=== PATIENT | female | born 1955 | race Caucasian/White ===

== ENCOUNTER → 2020-09-24 | Outpatient (CLI) | payer OTHER ==
[2020-09-24 16:31] LABS: African American GFR (CKD) 78.9 (60.0-200.0); Anion Gap 6.5 mmol/L (4.00-12.00); BUN/Creat Ratio 18.89 Ratio (12.00-20.00); Calcium 9.4 mg/dL (8.7-10.3); Carbon Dioxide 26.5 mmol/L (21.6-31.8); Chol/HDL Ratio 2.2; LDL Cholesterol,Calculated 68.6 mg/dL (0.0-131.0); Potassium 4.9 mmol/L (3.5-5.5); VLDL Calculation 10.4 mg/dL (5.00-40.00)
== END | disposition home or self-care (01) ==
LOC: LABWHC1 08:36
PROVIDERS: ATTEND Physician Assistant
DX: Z00.00 Encounter for general adult medical examination without abnormal findings (principal); I42.9 Cardiomyopathy, unspecified
CPT/HCPCS: 36415; 80048; 80061; 84443

== ENCOUNTER 2023-09-05 11:51 | Inpatient (IN) | payer BC, MEDICARE, OTHER ==
--- NOTE | 2023-09-05 12:14 | ED ---
SOB HPI - General Chief Complaint: Shortness of Breath Stated Complaint: abn EKG Time Seen by Provider: 09/05/23 12:00 Source: patient, RN notes reviewed Mode of arrival: ambulatory Limitations: no limitations - History of Present Illness Initial Comments: This is a 67-year-old female who presents to the emergency department for shortness of breath. Reports increasing shortness of breath over the last 2 weeks. She went to urgent care today and had a chest x-ray done, demonstrating fluid on the lungs. Denies any chest pain. This morning, she noticed swelling in the bilateral lower extremities and had difficulty getting her shoes on. She did not notice the swelling prior to today. She does have a history of a leaky heart valve and used to follow with Dr. Ponce, cardiology, but has not seen him in about 3 years, since [facility]. She has also not been on any of her medications for about 3 years. She cannot recall what these medications are. Denies any fevers, chills, sore throat, chest pain, palpitations, abdominal pain, nausea, vomiting, diarrhea, back pain, or headaches. MD Complaint: shortness of breath Onset/Timin -: week(s) - Related Data Home Medications Medication Instructions Recorded Confirmed No Known Home Medications 09/05/23 09/05/23 Allergies Allergy/AdvReac Type Severity Reaction Status Date / Time No Known Allergies Allergy Verified 09/05/23 13:41 Review of Systems ROS Statement: Those systems with pertinent positive or pertinent negative responses have been documented in the HPI. ROS Other: All systems not noted in ROS Statement are negative. Past Medical History Past Medical History: Hyperlipidemia, Hypertension Additional Past Medical History / Comment(s): leaky heart valve History of Any Multi-Drug Resistant Organisms: None Reported Past Surgical History: No Surgical Hx Reported Past Psychological History: No Psychological Hx Reported Smoking Status: Never smoker Past Alcohol Use History: None Reported Past Drug Use History: None Reported General Exam Limitations: no limitations General appearance: alert, in no apparent distress Head exam: Present: atraumatic, normocephalic, normal inspection Respiratory exam: Present: normal lung sounds bilaterally. Absent: respiratory distress, wheezes, rales, rhonchi, stridor Cardiovascular Exam: Present: normal rhythm, tachycardia Extremities exam: Present: other (Swelling to the bilateral lower extremities without any tenderness. No erythema.) Neurological exam: Present: alert, oriented X3, CN II-XII intact Psychiatric exam: Present: normal affect, normal mood Skin exam: Present: warm, dry, intact, normal color. Absent: rash Course Vital Signs 09/05/23 09/05/23 09/05/23 11:53 12:45 12:48 Temperature 98 F Pulse Rate 110 H 96 Respiratory 24 18 18 Rate Blood Pressure 113/70 112/90 O2 Sat by Pulse 98 99 Oximetry 09/05/23 09/05/23 09/05/23 13:05 14:20 14:52 Temperature 97.6 F Pulse Rate 104 H 99 101 H Respiratory 17 16 17 Rate Blood Pressure 107/78 116/79 98/70 O2 Sat by Pulse 97 97 96 Oximetry Medical Decision Making - Medical Decision Making This is a 67-year-old female who presents to the emergency department for shortness of breath. Was pt. sent in by a medical professional or institution? @ -Urgent care Did you speak to anyone other than the patient for history? @ -No Did you review nursing and triage notes? @ -Yes, and I agree, it is accurate with regards to the patient's symptoms. Were old charts reviewed? @ -No Differential Diagnosis? @ -Differential Dyspnea: Coronary syndrome, arrhythmia, tamponade, asthma, COPD, pulmonary embolism, pneumonia, pneumothorax, pulmonary effusion, anaphylaxis, diabetic ketoacidosis, flailed chest, pulmonary contusion, diaphragmatic rupture, anemia, neuromuscular, this is not meant to be an all-inclusive list. EKG interpreted by me (3pts min.)? @ -EKG interpreted by me demonstrating the following: Sinus tachycardia. Left axis deviation. Ventricular rate 116 bpm, PA interval 164 ms, QRS duration 142 ms, QTC 436 ms. X-rays interpreted by me (1pt min.)? @ -Chest x-ray obtained. My interpretation identifies bilateral lower lobe consolidations. CT interpreted by me (1pt min.)? @ -CT angiogram of the chest obtained. My interpretation identifies no evidence of a pulmonary embolus. U/S interpreted by me (1pt. min.)? @ -Not obtained What testing was considered but not performed? (CT, X-rays, U/S, labs)? Why? @ -None What meds were considered but not given? Why? @ -None Did you discuss the management of the patient with other professionals? @ -Yes, Dr. Zamora, who accepts the patient for admission. Did you reconcile home meds? @ -Yes - no home medications Was smoking cessation discussed for >3mins.? @ -No Was critical care preformed (if so, how long)? @ -No Were there social determinants of health that impacted care today? How? (Homelessness, low income, unemployed, alcoholism, drug addiction, transportation, low edu. Level, literacy, decrease access to med. care, longterm, rehab)? @ -No Was there de-escalation of care discussed even if they declined? (Discuss DNR or withdrawal of care, Hospice)? @ -No What co-morbidities impacted this encounter? (DM, HTN, Smoking, COPD, CAD, Cancer, CVA, Hep., AIDS, mental health diagnosis, sleep apnea, morbid obesity)? @ -HLD, HTN, leaky heart valve Was patient admitted / discharged?. @ -Admitted. lab work obtained revealing a BNP of 15,400 and a troponin of 0.881. Lactic acid mildly elevated at 2.1 and D-dimer elevated at 3.28. Chest x- ray reveals COPD with bilateral lower lobe infiltrates and a small effusion. Given the patient's symptoms with tachycardia and an elevated d-dimer, CTA of the chest was obtained. This identified no evidence of a pulmonary embolus. It did identify small bilateral pleural effusions. Given the new onset CHF with elevated troponin, patient admitted to medicine for further management with cardiology consult. Serial troponins ordered. She was started on low intensity heparin protocol and also given a dose of metoprolol for the tachycardia per the instruction of ED attending, Dr. Umaña. Undiagnosed new problem with uncertain prognosis? @ -None Drug Therapy requiring intensive monitoring for toxicity (Heparin, Nitro, Insulin, Cardizem)? @ -None Were any procedures done? @ -None Diagnosis/symptom? @ -New onset CHF, elevated troponin, dyspnea Acute, or Chronic, or Acute on Chronic? @ -Acute Uncomplicated (without systemic symptoms) or Complicated (systemic symptoms)? @ -Complicated Side effects of treatment? @ -None Exacerbation, Progression, or Severe Exacerbation] @ -Not applicable Poses a threat to life or bodily function? @ -Yes This case was discussed in detail with the attending ED physician, Dr. Umaña. Presentation, findings, and treatment plan discussed in detail as well. - Lab Data Result diagrams: 09/05/23 12:35 09/05/23 12:35 Lab Results 09/05/23 09/05/23 09/05/23 Range/Units 12:35 12:35 12:35 WBC 5.7 (3.8-10.6) k/uL RBC 3.38 L (3.80-5.40) m/uL Hgb 11.4 (11.4-16.0) gm/dL Hct 34.1 (34.0-46.0) % MCV 100.6 H (80.0-100.0) fL MCH 33.7 (25.0-35.0) pg MCHC 33.5 (31.0-37.0) g/dL RDW 15.1 (11.5-15.5) % Plt Count 125 L (150-450) k/uL MPV 9.9 Neutrophils % 68 % Lymphocytes % 25 % Monocytes % 4 % Eosinophils % 1 % Basophils % 0 % Neutrophils # 3.9 (1.3-7.7) k/uL Lymphocytes # 1.4 (1.0-4.8) k/uL Monocytes # 0.3 (0-1.0) k/uL Eosinophils # 0.0 (0-0.7) k/uL Basophils # 0.0 (0-0.2) k/uL Macrocytosis Slight PT 12.7 H (10.0-12.5) sec INR 1.2 H (<1.2) APTT 23.2 (22.0-30.0) sec D-Dimer 3.28 H (<0.60) mg/L FEU Sodium 134 L (137-145) mmol/L Potassium 4.8 (3.5-5.1) mmol/L Chloride 103 (98-107) mmol/L Carbon Dioxide 18 L (22-30) mmol/L Anion Gap 13 mmol/L BUN 19 H (7-17) mg/dL Creatinine 0.89 (0.52-1.04) mg/dL Est GFR (CKD-EPI)AfAm 78 (>60 ml/min/1.73 sqM) Est GFR (CKD-EPI)NonAf 68 (>60 ml/min/1.73 sqM) Glucose 118 H (74-99) mg/dL Plasma Lactic Acid Robb (0.7-2.0) mmol/L Calcium 9.3 (8.4-10.2) mg/dL Total Bilirubin 1.5 H (0.2-1.3) mg/dL AST 76 H (14-36) U/L ALT 70 H (4-34) U/L Alkaline Phosphatase 82 (38-126) U/L Troponin I (0.000-0.034) ng/mL NT-Pro-B Natriuret Pep 17165 pg/mL Total Protein 7.0 (6.3-8.2) g/dL Albumin 4.3 (3.5-5.0) g/dL Influenza Type A (PCR) (Not Detectd) Influenza Type B (PCR) (Not Detectd) RSV (PCR) (Not Detectd) SARS-CoV-2 (PCR) (Not Detectd) 09/05/23 09/05/23 09/05/23 Range/Units 12:35 12:35 12:35 WBC (3.8-10.6) k/uL RBC (3.80-5.40) m/uL Hgb (11.4-16.0) gm/dL Hct (34.0-46.0) % MCV (80.0-100.0) fL MCH (25.0-35.0) pg MCHC (31.0-37.0) g/dL RDW (11.5-15.5) % Plt Count (150-450) k/uL MPV Neutrophils % % Lymphocytes % % Monocytes % % Eosinophils % % Basophils % % Neutrophils # (1.3-7.7) k/uL Lymphocytes # (1.0-4.8) k/uL Monocytes # (0-1.0) k/uL Eosinophils # (0-0.7) k/uL Basophils # (0-0.2) k/uL Macrocytosis PT (10.0-12.5) sec INR (<1.2) APTT (22.0-30.0) sec D-Dimer (<0.60) mg/L FEU Sodium (137-145) mmol/L Potassium (3.5-5.1) mmol/L Chloride (98-107) mmol/L Carbon Dioxide (22-30) mmol/L Anion Gap mmol/L BUN (7-17) mg/dL Creatinine (0.52-1.04) mg/dL Est GFR (CKD-EPI)AfAm (>60 ml/min/1.73 sqM) Est GFR (CKD-EPI)NonAf (>60 ml/min/1.73 sqM) Glucose (74-99) mg/dL Plasma Lactic Acid Robb 2.1 H* (0.7-2.0) mmol/L Calcium (8.4-10.2) mg/dL Total Bilirubin (0.2-1.3) mg/dL AST (14-36) U/L ALT (4-34) U/L Alkaline Phosphatase (38-126) U/L Troponin I 0.881 H* (0.000-0.034) ng/mL NT-Pro-B Natriuret Pep pg/mL Total Protein (6.3-8.2) g/dL Albumin (3.5-5.0) g/dL Influenza Type A (PCR) Not Detected (Not Detectd) Influenza Type B (PCR) Not Detected (Not Detectd) RSV (PCR) Not Detected (Not Detectd) SARS-CoV-2 (PCR) Not Detected (Not Detectd) - Radiology Data Radiology results: report reviewed, image reviewed Disposition Clinical Impression: New onset of congestive heart failure, Elevated troponin level, Dyspnea Disposition: ADMITTED IP TO THIS HOSP Referrals: None,Stated [Primary Care Provider] - 1-2 days
--- NOTE | 2023-09-05 13:12 | XR ---
EXAMINATION TYPE: XR chest 2V DATE OF EXAM: 09/05/2023 COMPARISON: NONE TECHNIQUE: PA and lateral views submitted. HISTORY: Difficulty breathing FINDINGS: Bilateral lower lobe consolidation small effusion superimposed on a background COPD. Biapical pleural thickening. Diffuse osteopenia. Curvature of the spine with mild hypertrophic and degenerative puente es. IMPRESSION: 1. COPD with bilateral lower lobe infiltrate and small effusion correlate for mild venous congestion.
[2023-09-05 13:28] LABS: INR 1.2 (<1.2); Partial Thromboplastin Time 23.2 sec (22.0-30.0); Prothrombin Time 12.7 sec (10.0-12.5)
[2023-09-05 13:32] LABS: ALT 70 U/L (4-34); AST 76 U/L (14-36); African American GFR (CKD) 78 (>60 ml/min/1.73 sqM); Albumin 4.3 g/dL (3.5-5.0); Alkaline Phosphatase 82 U/L (38-126); Anion Gap 13 mmol/L; Basophils % (A) 0 %; Blood Urea Nitrogen 19 mg/dL (7-17); Calcium 9.3 mg/dL (8.4-10.2); Carbon Dioxide 18 mmol/L (22-30); Chloride 103 mmol/L (98-107); Eosinophils % (A) 1 %; Glucose 118 mg/dL (74-99); HCT 34.1 % (34.0-46.0); HGB 11.4 gm/dL (11.4-16.0); Lymphocytes # (A) 1.4 k/uL (1.0-4.8); Lymphocytes % (A) 25 %; MCH 33.7 pg (25.0-35.0); MCHC 33.5 g/dL (31.0-37.0); MCV 100.6 fL (80.0-100.0); Macrocytosis Slight; Mean Platelet Volume 9.9; Monocytes # (A) 0.3 k/uL (0-1.0); Monocytes % (A) 4 %; Neutrophils # (A) 3.9 k/uL (1.3-7.7); Neutrophils % (A) 68 %; Non-African American GFR(CKD) 68 (>60 ml/min/1.73 sqM); Platelet Count 125 k/uL (150-450); Potassium 4.8 mmol/L (3.5-5.1); RBC 3.38 m/uL (3.80-5.40); RDW 15.1 % (11.5-15.5); Sodium 134 mmol/L (137-145); Total Bilirubin 1.5 mg/dL (0.2-1.3); WBC 5.7 k/uL (3.8-10.6)
[2023-09-05 13:41] LABS: NT-Pro-B-Type Natriuretic Pept 15400 pg/mL
--- NOTE | 2023-09-05 14:23 | CT ---
CT CHEST FOR PULMONARY EMBOLISM. EXAMINATION TYPE: CT chest angio for PE DATE OF EXAM: 09/05/2023 INDICATION: SOB, elevated d-dimer CT DLP: 249.3 mGycm, Automated exposure control for dose reduction was used. CONTRAST: Patient injected with 100 mL of Isovue 370. COMPARISON: None TECHNIQUE: CT of the chest is performed on a spiral scan at 2 mm thick sections. Study is performed with intravenous contrast timed for evaluation for pulmonary embolism. This will limit additional po rtions of the evaluation. 3-D MIP images reconstructed by the technologist are reviewed on the compu ter in the coronal and sagittal planes. FINDINGS: No persistent filling defects are evident to suggest an acute pulmonary embolism. No mediastinal or hilar adenopathy enlarged by CT criteria is evident. The ascending aorta diameter at the level of the main pulmonary artery is 2.3 cm. The main pulmonary artery diameter at the bifur cation is 2.5 cm. There is a small right and minimal left pleural effusion. Small compressive atelectasis. Dependent at electasis present at the bilateral dependent lung bases. Some minimal streak atelectasis is within th e lingula Limited CT section through the upper abdomen are unremarkable. IMPRESSION: 1. No acute pulmonary embolism. 2. Small right and minimal left pleural effusion. 3. Dependent atelectasis bilateral lung bases.
[2023-09-05] MEDS ORDERED: HEPARIN SODIUM 1,000 UN/ML (10ML VL) IV ONE (14:35)
[2023-09-05] MEDS ORDERED: HEPARIN SODIUM 1,000 UN/ML (10ML VL) IV PRN (14:35)
[2023-09-05] MEDS ORDERED: HEPARIN SOD,PORK IN 0.45% NACL 25,000 UNIT in 0.45% NACL 1 250ML.BAG IV SCH (14:45)
[2023-09-05] MEDS: METOPROLOL TARTRATE 5 MG/5 ML VIAL IVP ONE ×2 (14:53→18:28)
[2023-09-05] MEDS ORDERED: ACETAMINOPHEN TAB 325 MG TAB PO PRN (15:00)
[2023-09-05] MEDS ORDERED: NALOXONE 0.4 MG/ML 1 ML VIAL IV PRN (15:00)
[2023-09-05] MEDS ORDERED: HYDROcodone/APAP 5-325MG 1 EACH TAB PO PRN (15:00)
[2023-09-05] MEDS ORDERED: ONDANSETRON 4 MG/2 ML VIAL IVP PRN (15:00)
[2023-09-05] MEDS: METOPROLOL TARTRATE 25 MG TAB PO SCH (19:30)
[2023-09-05] MEDS ORDERED: IPRATROPIUM-ALBUTEROL 3 ML NEB INHALATION PRN (22:23)
[2023-09-05] MEDS ORDERED: FUROSEMIDE 10 MG/ML 2 ML VIAL IV ONE (22:23)
[2023-09-05] MEDS: methylPREDNISolone SOD SUCCI 40 MG/ML 1 ML VIAL IV SCH (23:50)
--- NOTE | 2023-09-06 03:40 | HP ---
HISTORY AND PHYSICAL HISTORY OF PRESENT ILLNESS: She is a 67-year-old white female presented to the emergency room with shortness of breath. She was ER, became short of breath. She had increased weight gain, elevated swelling, history of leaking for the last 15 years. She had some kind of systolic CHF which covered. She has been way worse with breathing. She is not better on her medicine for years. She cannot recall really what medicines they are. ALLERGIES: Negative. MEDICATIONS: A 14-point review of systems otherwise is negative except for PND, orthopnea, and dyspnea with exertion. PAST MEDICAL HISTORY: Positive for hypertension, , and dyslipidemia. PHYSICAL EXAMINATION: VITAL SIGNS: Pulse is 96 to 110, temp 98.4, respiratory rate 18 to 24, blood pressure 110 to 120 over 90s. CARDIOVASCULAR: S1, S2. LUNGS: Rales at the bases. EXTREMITIES: She has 2 to 3+ edema bilaterally. NEUROLOGIC: Alert and oriented x3. PSYCH: Fair mood and affect. GI: Soft, nontender. ASSESSMENT: Acute on chronic CHF, COPD, diastolic dysfunction, anxiety, positive D-dimer, negative for PE. Continue current treatment. Follow up in the next 24 to 48 hours. New-onset CHF, elevated troponin level. Get Cardiology involved. Prognosis guarded. MMODL / IJN: [id number] /
[2023-09-06] MEDS: IPRATROPIUM-ALBUTEROL 3 ML NEB INHALATION SCH ×4 (05:17→21:10)
[2023-09-06] MEDS: methylPREDNISolone SOD SUCCI 40 MG/ML 1 ML VIAL IV SCH ×2 (08:09→17:01)
[2023-09-06] MEDS: METOPROLOL TARTRATE 25 MG TAB PO SCH ×2 (08:09→20:03)
[2023-09-06 08:31] LABS: Basophils % (A) 0 %; Eosinophils % (A) 0 %; HCT 36.7 % (34.0-46.0); Lymphocytes # (A) 0.7 k/uL (1.0-4.8); Lymphocytes % (A) 15 %; MCH 33.3 pg (25.0-35.0); MCHC 32.7 g/dL (31.0-37.0); MCV 101.8 fL (80.0-100.0); Macrocytosis Slight; Mean Platelet Volume 9.2; Monocytes # (A) 0.1 k/uL (0-1.0); Monocytes % (A) 2 %; Neutrophils # (A) 3.5 k/uL (1.3-7.7); Neutrophils % (A) 82 %; Platelet Count 133 k/uL (150-450); RDW 14.8 % (11.5-15.5); WBC 4.4 k/uL (3.8-10.6)
[2023-09-06 08:55] LABS: INR 1.2 (<1.2); Prothrombin Time 12.9 sec (10.0-12.5)
[2023-09-06] MEDS ORDERED: FUROSEMIDE 10 MG/ML 2 ML VIAL IV SCH (09:00)
[2023-09-06] MEDS: SPIRONOLACTONE 25 MG TAB PO SCH (10:34)
[2023-09-06] MEDS: DAPAGLIFLOZIN PROPANEDIOL 10 MG TABLET PO SCH (10:35)
[2023-09-06] MEDS: ASPIRIN 81 MG PO SCH (10:35)
[2023-09-06] MEDS: FUROSEMIDE 10 MG/ML 4 ML VIAL IV SCH ×2 (10:35→20:03)
--- NOTE | 2023-09-06 12:14 | P.CRDCN ---
History of Present Illness History of present illness: HISTORY OF PRESENT ILLNESS: This is a 67-year-old female with a past medical history significant for nonischemic cardiomyopathy, left bundle branch block, congestive heart failure, hypertension, and hyperlipidemia. Patient follows in the office with Dr. Ponce but has not been to the office since October 2020. We have been asked to see the patient in consultation for congestive heart failure. Patient examined at the bedside in the emergency room. 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 She also reports she ran out of her medications about 2 years ago and since then has not been taking any medications. She presented to the hospital for chief complaint of shortness of breath. She states she has been feeling short of breath for the past couple weeks and it has been getting progressively worse. She also reports that she began to have some swelling in her lower extremities yesterday. She reports mild chest discomfort when she is laying on her back secondary to her reading difficulty. The patient is a nonsmoker. She reports alcohol use approximately once a week. She denies a high salt diet. * EKG reveals sinus tachycardia with left lung branch block. * Chest xray COPD with bilateral lower lobe infiltrate and small effusion. Correlate for mild venous congestion. * Chest CT: Negative for pulmonary embolism. Small right pleural effusion. Minimal left pleural effusion. * Laboratory data: WBC 4.4. Hemoglobin 12.0. Platelet account 133. D-dimer 3.28. Sodium 134. Potassium 4.8. BUN 19. Creatinine 0.9. ProBNP 15,400. Troponin 0.881. 0.779. 0.833. * Current home cardiac medications include none * Most recent echocardiogram obtained in October 2020 revealed ejection fraction 30-35%, [id number] mitral regurgitation, and mild tricuspid regurgitation * Cardiac catheterization history: December 2009 revealing normal coronary arteries REVIEW OF SYSTEMS: At the time of my exam: CONSTITUTIONAL: Denies fever or chills. HEENT: Denies blurred vision, vision changes, or eye pain. Denies hemoptysis CARDIOVASCULAR: Denies chest pain. Denies orthopnea. Denies PND. Denies palpitations RESPIRATORY: Denies shortness of breath. GASTROINTESTINAL: Denies abdominal pain. Denies nausea or vomiting. HEMATOLOGIC: Denies bleeding disorders. GENITOURINARY: Denies any blood in urine. SKIN: Denies pruitis. Denies rash. PHYSICAL EXAM: VITAL SIGNS: Reviewed. GENERAL: Well-developed in no acute distress. HEENT: Head is normocephalic. Pupils are equal, round. Sclerae anicteric. Mucous membranes of the mouth are moist. Neck supple. No JVD or thyromegaly LUNGS: Respirations even and unlabored. Lungs with bibasilar crackles noted. HEART: Regular rate and rhythm. S1 and S2 heard. Systolic murmur noted. ABDOMEN: Soft. Nondistended. Nontender. EXTREMITIES: Normal range of motion. No clubbing or cyanosis. Peripheral pulses intact. 1-2+ bilateral lower extremity edema noted NEUROLOGIC: Awake and alert. Oriented x 3. ASSESSMENT: Shortness of breath Acute on chronic heart failure with reduced ejection fraction; 30-35% in 2020 Abnormal troponins, flat, likely secondary to above, no evidence of acute coronary syndrome Nonischemic cardiomyopathy Left bundle-branch block Hypertension Hyperlipidemia Medication noncompliance, patient states she has not taken medications in 2 years [id number] mitral regurgitation, per echo in 2020 PLAN: Obtain 2-D echo to assess cardiac structure and function Discontinue IV heparin. Begin subcu heparin. Begin IV Lasix 40 mg every 12 hours Continue metoprolol tartrate 25 mg twice a day Add Aldactone 25 mg daily, aspirin 81 mg daily, Lipitor 20 mg daily, and Farxiga 10mg daily Will add NICK/ARB tomorrow if blood pressure can tolerate Consider eventual AICD implantation secondary to cardiomyopathy and left bundle branch block Further recommendations pending patient's course Nurse practitioner note has been reviewed by physician. Signing provider agrees with the documented findings, assessment, and plan of care. Past Medical History Past Medical History: Hyperlipidemia, Hypertension Additional Past Medical History / Comment(s): leaky heart valve History of Any Multi-Drug Resistant Organisms: None Reported Past Surgical History: No Surgical Hx Reported Past Psychological History: No Psychological Hx Reported Smoking Status: Never smoker Past Alcohol Use History: None Reported Past Drug Use History: None Reported - Past Family History Mother Family Medical History: GI Bleed Additional Family Medical History / Comment(s): breast cancer Father Additional Family Medical History / Comment(s): lung cancer Medications and Allergies Home Medications Medication Instructions Recorded Confirmed Type No Known Home Medications 09/05/23 09/05/23 History Allergies Allergy/AdvReac Type Severity Reaction Status Date / Time No Known Allergies Allergy Verified 09/05/23 13:41 Physical Exam Vitals: Vital Signs Temp Pulse Resp BP Pulse Ox 09/06/23 08:52 97.3 F L 96 18 109/79 94 L 09/06/23 08:30 94 L 09/06/23 08:00 101 H 20 94 L 09/06/23 07:46 97.9 F 96 125/75 97 09/06/23 06:04 97 20 115/73 93 L 09/06/23 05:28 96 09/06/23 05:18 97 09/06/23 05:11 95 19 112/74 95 09/06/23 02:15 87 20 94 L 09/06/23 01:07 98 21 96 09/05/23 22:38 103 H 20 09/05/23 22:35 100 09/05/23 22:32 102 H 20 09/05/23 22:02 109 H 25 H 103/90 97 09/05/23 21:00 101 H 19 112/78 96 09/05/23 19:50 90 107/74 97 09/05/23 19:29 96 19 99/81 99 09/05/23 18:51 98.3 F 86 16 90/69 96 09/05/23 18:26 97.8 F 110 H 16 114/84 97 09/05/23 16:05 97.6 F 99 18 112/76 95 09/05/23 14:52 101 H 17 98/70 96 09/05/23 14:20 97.6 F 99 16 116/79 97 09/05/23 13:05 104 H 17 107/78 97 09/05/23 12:48 18 09/05/23 12:45 96 18 112/90 99 09/05/23 11:53 98 F 110 H 24 113/70 98 Results 09/06/23 08:03 09/05/23 12:35 Cardiac Enzymes 09/05/23 09/05/23 09/05/23 Range/Units 12:35 12:35 16:34 AST 76 H (14-36) U/L Troponin I 0.881 H* 0.779 H* (0.000-0.034) ng/mL 09/05/23 Range/Units 19:51 AST (14-36) U/L Troponin I 0.833 H* (0.000-0.034) ng/mL Coagulation 09/05/23 09/05/23 09/06/23 Range/Units 12:35 19:51 08:03 PT 12.7 H 12.9 H (10.0-12.5) sec APTT 23.2 48.4 H (22.0-30.0) sec CBC 09/05/23 09/06/23 Range/Units 12:35 08:03 WBC 5.7 4.4 (3.8-10.6) k/uL RBC 3.38 L 3.60 L (3.80-5.40) m/uL Hgb 11.4 12.0 (11.4-16.0) gm/dL Hct 34.1 36.7 (34.0-46.0) % Plt Count 125 L 133 L (150-450) k/uL Comprehensive Metabolic Panel 09/05/23 Range/Units 12:35 Sodium 134 L (137-145) mmol/L Potassium 4.8 (3.5-5.1) mmol/L Chloride 103 (98-107) mmol/L Carbon Dioxide 18 L (22-30) mmol/L BUN 19 H (7-17) mg/dL Creatinine 0.89 (0.52-1.04) mg/dL Glucose 118 H (74-99) mg/dL Calcium 9.3 (8.4-10.2) mg/dL AST 76 H (14-36) U/L ALT 70 H (4-34) U/L Alkaline Phosphatase 82 (38-126) U/L Total Protein 7.0 (6.3-8.2) g/dL Albumin 4.3 (3.5-5.0) g/dL Current Medications Generic Name Dose Route Start Last Admin Trade Name Freq PRN Reason Stop Dose Admin Acetaminophen 650 mg 09/05/23 15:00 Acetaminophen Tab 325 Mg Tab PO Q6HR PRN Mild Pain or Fever > 100.5 Hydrocodone Bitart/Acetaminophen 1 each 09/05/23 15:00 Hydrocodone/Apap 5-325mg 1 Each Tab PO Q4HR PRN Moderate Pain (Scale 4 to 6) Albuterol/Ipratropium 3 ml 09/06/23 05:16 09/06/23 05:17 Ipratropium-Albuterol 3 Ml Neb INHALATION 3 ml RT-QID STACEY Administration Furosemide 20 mg 09/06/23 09:00 09/06/23 08:10 Furosemide 10 Mg/Ml 2 Ml Vial IV 20 mg Q12HR STACEY Administration Heparin Sodium (Porcine) 0 unit 09/05/23 14:35 Heparin Sodium 1,000 Un/Ml (10ml Vl) IV PER PROTOCOL PRN Low PTT Protocol Heparin Sodium/Sodium Chloride 250 mls @ 7.348 mls/hr 09/05/23 14:45 09/05/23 14:51 25,000 unit/ Sodium Chloride IV 12 units/kg/hr .Q24H STACEY 7.348 mls/hr Administration Protocol 12 UNITS/KG/HR Methylprednisolone Sodium Succinate 40 mg 09/06/23 00:00 09/06/23 08:09 Methylprednisolone Sod Succi 40 Mg/Ml 1 Ml Vial IV 40 mg Q8HR STACEY Administration Metoprolol Tartrate 25 mg 09/05/23 21:00 09/06/23 08:09 Metoprolol Tartrate 25 Mg Tab PO 25 mg BID STACEY Administration Naloxone HCl 0.2 mg 09/05/23 15:00 Naloxone 0.4 Mg/Ml 1 Ml Vial IV Q2M PRN Opioid Reversal Ondansetron HCl 4 mg 09/05/23 15:00 Ondansetron 4 Mg/2 Ml Vial IVP Q8HR PRN Nausea And Vomiting 09/06/23 08:03 09/05/23 12:35
--- NOTE | 2023-09-06 13:19 | CA ---
Transthoracic Echo Report Name: Chel Downey Age: 67 Gender: F : 1955 Exam Date: 09/06/2023 09:06 Exam Location: [facility] Ht (in): 65 Wt (lb): 135 Ordering Physician: Preston Umaña DO Attending/Referring Phys: [id number], Leeroy Crm Analyst Heriberto Triplett Procedure CPT: Indications: chf,ElevTrop Cardiac Hx: Technical Quality: Good Contrast 1: Total Dose (mL): Contrast 2: Total Dose (mL): MEASUREMENTS (Male / Female) Normal Values 2D ECHO LV Diastolic Diameter PLAX 6.3 cm 4.2 - 5.9 / 3.9 - 5.3 cm LV Systolic Diameter PLAX 5.8 cm IVS Diastolic Thickness 0.8 cm 0.6 - 1.0 / 0.6 - 0.9 cm LVPW Diastolic Thickness 0.9 cm 0.6 - 1.0 / 0.6 - 0.9 cm LV Relative Wall Thickness 0.3 RV Internal Dim ED PLAX 3.0 cm LVOT Diameter 1.7 cm Aortic Root Diameter 2.2 cm LA Systolic Diameter LX 4.0 cm 3.0 - 4.0 / 2.7 - 3.8 cm LV Diastolic Volume MOD BP 99.2 cm??? 67 - 155 / 56 - 104 cm??? LV Systolic Volume MOD BP 103.8 cm??? 22 - 58 / 19 - 49 cm??? LV Ejection Fraction MOD BP -4.6 % >= 55 % LV Cardiac Index MOD BP -263.0 cm???/min???m??? LV Diastolic Volume MOD 4C 85.0 cm??? LV Systolic Volume MOD 4C 80.5 cm??? LV Ejection Fraction MOD 4C 5.3 % LV Cardiac Index MOD 4C 255.9 cm???/min???m??? LV Diastolic Length 4C 6.6 cm LV Systolic Length 4C 6.4 cm LV Diastolic Volume MOD 2C 101.1 cm??? LV Systolic Volume MOD 2C 115.0 cm??? LV Ejection Fraction MOD 2C -13.7 % LV Cardiac Index MOD 2C -793.4 cm???/min???m??? LV Diastolic Length 2C 7.6 cm LV Systolic Length 2C 7.4 cm LA Volume 90.5 cm??? 18 - 58 / 22 - 52 cm??? LA Volume Index 53.9 cm???/m??? 16 - 28 cm???/m??? Ascending Aorta Diameter 2.8 cm DOPPLER AV Peak Velocity 75.8 cm/s AV Peak Gradient 2.3 mmHg LVOT Peak Velocity 44.4 cm/s LVOT Peak Gradient 0.8 mmHg LVOT Velocity Time Integral 5.9 cm LVOT Stroke Volume 13.3 cm??? LVOT Stroke Volume Index 7.9 ml/m??? LVOT Cardiac Index 758.5 cm???/min???m??? AV Area Cont Eq pk 1.3 cm??? MV Peak Velocity 165.5 cm/s MV Peak Gradient 11.0 mmHg MV Mean Velocity 60.2 cm/s MV Mean Gradient 2.1 mmHg MV Velocity Time Integral 26.9 cm MR Peak Velocity 404.8 cm/s MR Peak Gradient 65.5 mmHg Mitral E Point Velocity 123.5 cm/s Mitral A Point Velocity 65.7 cm/s Mitral E to A Ratio 1.9 MV Deceleration Time 122.6 ms MV E' Velocity 3.4 cm/s Mitral E to MV E' Ratio 36.0 TR Peak Velocity 285.1 cm/s TR Peak Gradient 32.5 mmHg Right Ventricular Systolic Press 37.5 mmHg PV Peak Velocity 51.3 cm/s PV Peak Gradient 1.1 mmHg FINDINGS Left Ventricle Severe left ventricular dilatation. Left ventricular ejection fraction is estimated at 10-15 %. Right Ventricle Normal right ventricular size. RVSP= 37mmHg. Right Atrium Right atrial dilatation. RA area= 19.7cm2 Left Atrium Left atrial dilatation. LA volume index= 54ml/m2 Mitral Valve Structurally normal mitral valve. Severe MR. Aortic Valve Trileaflet aortic valve. No aortic valve stenosis or regurgitation. Tricuspid Valve Structurally normal tricuspid valve. Moderate to severe R. Pulmonic Valve Structurally normal pulmonic valve. Mild to moderate PI. Pericardium Left pleural effusion. Aorta Normal size aortic root. CONCLUSIONS Dilated left ventricle with very severe LV dysfunction Biatrial enlargement Dilated IVC Previewed by: Dr. Yaya Ponce MD (Electronically Signed) Final Date: 06 September 2023 13:18
[2023-09-06] MEDS: HEPARIN SODIUM,PORCINE 5,000 UNIT/ML 1 ML VIAL SQ SCH (17:00)
[2023-09-06] MEDS: ATORVASTATIN 20 MG TAB PO SCH (20:03)
[2023-09-07] MEDS: HEPARIN SODIUM,PORCINE 5,000 UNIT/ML 1 ML VIAL SQ SCH ×3 (00:20→16:00)
[2023-09-07] MEDS: methylPREDNISolone SOD SUCCI 40 MG/ML 1 ML VIAL IV SCH ×3 (00:20→16:00)
--- NOTE | 2023-09-07 06:29 | PN ---
PROGRESS NOTE SUBJECTIVE: This is a 67-year-old white female with new-onset CHF, ejection fraction 10% to 15%, COPD, pulmonary hypertension. Continue on breathing treatments. Continue with cardiac medications. PROGNOSIS: Guarded. Continue current treatment. Follow up in next 24 to 48 hours. MMMARGOTL / IJN: [id number] /
[2023-09-07] MEDS: IPRATROPIUM-ALBUTEROL 3 ML NEB INHALATION SCH ×4 (07:46→21:20)
[2023-09-07] MEDS: SPIRONOLACTONE 25 MG TAB PO SCH (08:48)
[2023-09-07] MEDS: FUROSEMIDE 10 MG/ML 4 ML VIAL IV SCH (08:48)
[2023-09-07] MEDS: ASPIRIN 81 MG PO SCH (08:48)
[2023-09-07] MEDS: DAPAGLIFLOZIN PROPANEDIOL 10 MG TABLET PO SCH (08:48)
[2023-09-07] MEDS: METOPROLOL TARTRATE 25 MG TAB PO SCH ×2 (08:48→20:15)
[2023-09-07 09:23] LABS: African American GFR (CKD) 65 (>60 ml/min/1.73 sqM); Anion Gap 13 mmol/L; Blood Urea Nitrogen 22 mg/dL (7-17); Calcium 8.7 mg/dL (8.4-10.2); Carbon Dioxide 22 mmol/L (22-30); Chloride 100 mmol/L (98-107); Glucose 145 mg/dL (74-99); Non-African American GFR(CKD) 56 (>60 ml/min/1.73 sqM); Potassium 4.2 mmol/L (3.5-5.1); Sodium 135 mmol/L (137-145)
--- NOTE | 2023-09-07 12:46 | P.PN ---
Subjective HISTORY OF PRESENT ILLNESS: This is a 67-year-old female with a past medical history significant for nonischemic cardiomyopathy, left bundle branch block, congestive heart failure, hypertension, and hyperlipidemia. Patient follows in the office with Dr. Ponce but has not been to the office since October 2020. We have been asked to see the patient in consultation for congestive heart failure. Patient examined at the bedside in the emergency room. The patient states that she has not seen a physician in a few years including a roller coaster designer or her primary care physician. She also reports she ran out of her medications about 2 years ago and since then has not been taking any medications. She presented to the hospital for chief complaint of shortness of breath. She states she has been feeling short of breath for the past couple weeks and it has been getting progressively worse. She also reports that she began to have some swelling in her lower extremities yesterday. She reports mild chest discomfort when she is laying on her back secondary to her reading difficulty. The patient is a nonsmoker. She reports alcohol use approximately once a week. She denies a high salt diet. * EKG reveals sinus tachycardia with left lung branch block. * Chest xray COPD with bilateral lower lobe infiltrate and small effusion. Correlate for mild venous congestion. * Chest CT: Negative for pulmonary embolism. Small right pleural effusion. Minimal left pleural effusion. * Laboratory data: WBC 4.4. Hemoglobin 12.0. Platelet account 133. D-dimer 3.28. Sodium 134. Potassium 4.8. BUN 19. Creatinine 0.9. ProBNP 15,400. Troponin 0.881. 0.779. 0.833. * Current home cardiac medications include none * Most recent echocardiogram obtained in October 2020 revealed ejection fraction 30-35%, [id number] mitral regurgitation, and mild tricuspid regurgitation * Cardiac catheterization history: December 2009 revealing normal coronary arteries 09/07/2023 Patient examined this morning at the bedside. Patient denies chest pain or pressure. She reports improvement in her shortness of breath and lower extremity edema. She remains on IV Lasix. Blood pressure running on the lower side with a systolic between [address]. Echocardiogram completed revealing ejection fraction 10-15% with severe MR and moderate to severe TR PHYSICAL EXAM: VITAL SIGNS: Reviewed. GENERAL: Well-developed in no acute distress. HEENT: Head is normocephalic. Pupils are equal, round. Sclerae anicteric. Mucous membranes of the mouth are moist. Neck supple. No JVD or thyromegaly LUNGS: Respirations even and unlabored. Lungs with bibasilar crackles noted, improved from yesterday. HEART: Regular rate and rhythm. S1 and S2 heard. Systolic murmur noted. ABDOMEN: Soft. Nondistended. Nontender. EXTREMITIES: Normal range of motion. No clubbing or cyanosis. Peripheral pulses intact. Trace bilateral lower extremity edema noted NEUROLOGIC: Awake and alert. Oriented x 3. ASSESSMENT: Shortness of breath Acute on chronic heart failure with reduced ejection fraction; 30-35% in 2020, now 10-15% Abnormal troponins, flat, likely secondary to above, no evidence of acute coronary syndrome Nonischemic cardiomyopathy Left bundle-branch block Hypertension Hyperlipidemia Medication noncompliance, patient states she has not taken medications in 2 years Valvular heart disease including severe MR and moderate to severe TR PLAN: Continue current cardiac medications Discontinue IV Lasix. Begin oral Lasix 40 mg daily Add lisinopril 2.5 mg daily. Continue to monitor blood pressure. We will consider changing to Entresto on an outpatient basis if blood pressure can tolerate Continue to monitor kidney function. Repeat in a.m. Consider eventual AICD implantation secondary to cardiomyopathy and left bundle branch block Further recommendations pending patient's course Nurse practitioner note has been reviewed by physician. Signing provider agrees with the documented findings, assessment, and plan of care. Objective - Vital Signs Vital signs: Vital Signs Temp 97.8 F 09/06/23 10:00 Pulse 94 09/07/23 11:25 Resp 18 09/07/23 08:00 BP 107/62 09/07/23 08:00 Pulse Ox 97 09/07/23 08:00 FiO2 Intake & Output 09/06/23 09/07/23 09/07/23 18:59 06:59 18:59 Intake Total 180 180 Output Total 1200 1300 Balance -1020 -1120 Weight 62 kg Intake: Oral 180 180 Output: Urine 1200 1300 - Labs CBC & Chem 7: 09/06/23 08:03 09/07/23 07:21 Labs: Abnormal Lab Results - Last 24 Hours (Table) 09/07/23 Range/Units 07:21 Sodium 135 L (137-145) mmol/L BUN 22 H (7-17) mg/dL Glucose 145 H (74-99) mg/dL
--- NOTE | 2023-09-07 13:35 | CDI ---
Documentation Clarification Form Date: From: Anabel Correia Phone: [phone] Admit Date: 09/05/2023 04:26:00 PM Patient Name: Chel Downey Visit Number: [id number] Discharge Date: ATTENTION: The Clinical Documentation Specialists (CDI) and [facility] Coding Staff appreciate your assistance in clarifying documentation. Please respond to the clarification below the line at the bottom and electronically sign. The CDI & [facility] Coding staff will review the response and follow-up if needed. Please note: Queries are made part of the Legal Health Record. If you have any questions, please contact the author of this message via ITS. Dr. Vinay Zamora Your patient has increased troponin levels on admission. Please clarify if there is an additional diagnosis and/or clinical significance related to this value. Patient history/risk factors: "67-year-old female who presents to the emergency department for shortness of breath. Reports increasing shortness of breath over the last 2 weeks. She went to urgent care today and had a chest x-ray done, demonstrating fluid on the lungs." - Per ED Note on 09/05 Clinical indicators: "presented to the hospital for chief complaint of shortness of breath." "reports mild chest discomfort when she is laying on her back" "EKG reveals sinus tachycardia with left lung branch block" "Acute on chronic heart failure with reduced ejection fraction" "Abnormal troponins, flat, likely secondary to above" - Per Cardiology Note on 09/06 Troponin 0.881. 0.779. 0.833.DDDD Treatment: Per Cardiology Note on 09/06 "Begin IV Lasix 40 mg every 12 hours Continue metoprolol tartrate 25 mg twice a day Add Aldactone 25 mg daily, aspirin 81 mg daily, Lipitor 20 mg daily, and Farxiga 10mg daily Will add NICK/ARB tomorrow if blood pressure can tolerate" Is there an additional diagnosis and/or clinical significance related to the above lab result/information: [ ] Type 2 FL due to Acute on Chronic heart failure [ ] Non-ischemic with acute myocardial injury [ ] No additional diagnosis/Not clinically significant [ ] Other, please specify [ ] Unable to determine MTDD
[2023-09-07] MEDS: ATORVASTATIN 20 MG TAB PO SCH (20:16)
[2023-09-08] MEDS: HEPARIN SODIUM,PORCINE 5,000 UNIT/ML 1 ML VIAL SQ SCH ×4 (06:27→23:55)
[2023-09-08] MEDS: methylPREDNISolone SOD SUCCI 40 MG/ML 1 ML VIAL IV SCH ×4 (06:28→23:55)
[2023-09-08] MEDS ORDERED: METOPROLOL TARTRATE 25 MG TAB ONE (08:11)
[2023-09-08] MEDS: METOPROLOL TARTRATE 25 MG TAB PO SCH ×2 (08:14→20:25)
[2023-09-08] MEDS: DAPAGLIFLOZIN PROPANEDIOL 10 MG TABLET PO SCH (08:14)
[2023-09-08] MEDS: FUROSEMIDE 40 MG TAB PO SCH (08:15)
[2023-09-08] MEDS: SPIRONOLACTONE 25 MG TAB PO SCH (08:15)
[2023-09-08] MEDS: ASPIRIN 81 MG PO SCH (08:16)
[2023-09-08] MEDS: IPRATROPIUM-ALBUTEROL 3 ML NEB INHALATION SCH ×4 (08:57→22:25)
[2023-09-08 09:31] LABS: African American GFR (CKD) 86 (>60 ml/min/1.73 sqM); Anion Gap 10 mmol/L; Blood Urea Nitrogen 22 mg/dL (7-17); Carbon Dioxide 26 mmol/L (22-30); Chloride 101 mmol/L (98-107); Glucose 125 mg/dL (74-99); Non-African American GFR(CKD) 75 (>60 ml/min/1.73 sqM); Potassium 4.4 mmol/L (3.5-5.1); Sodium 137 mmol/L (137-145)
--- NOTE | 2023-09-08 14:23 | P.PN ---
Subjective HISTORY OF PRESENT ILLNESS: This is a 67-year-old female with a past medical history significant for nonischemic cardiomyopathy, left bundle branch block, congestive heart failure, hypertension, and hyperlipidemia. Patient follows in the office with Dr. Ponce but has not been to the office since October 2020. We have been asked to see the patient in consultation for congestive heart failure. Patient examined at the bedside in the emergency room. The patient states that she has not seen a physician in a few years including a scouring machine operator or her primary care physician. She also reports she ran out of her medications about 2 years ago and since then has not been taking any medications. She presented to the hospital for chief complaint of shortness of breath. She states she has been feeling short of breath for the past couple weeks and it has been getting progressively worse. She also reports that she began to have some swelling in her lower extremities yesterday. She reports mild chest discomfort when she is laying on her back secondary to her reading difficulty. The patient is a nonsmoker. She reports alcohol use approximately once a week. She denies a high salt diet. * EKG reveals sinus tachycardia with left lung branch block. * Chest xray COPD with bilateral lower lobe infiltrate and small effusion. Correlate for mild venous congestion. * Chest CT: Negative for pulmonary embolism. Small right pleural effusion. Minimal left pleural effusion. * Laboratory data: WBC 4.4. Hemoglobin 12.0. Platelet account 133. D-dimer 3.28. Sodium 134. Potassium 4.8. BUN 19. Creatinine 0.9. ProBNP 15,400. Troponin 0.881. 0.779. 0.833. * Current home cardiac medications include none * Most recent echocardiogram obtained in October 2020 revealed ejection fraction 30-35%, [id number] mitral regurgitation, and mild tricuspid regurgitation * Cardiac catheterization history: December 2009 revealing normal coronary arteries 09/07/2023 Patient examined this morning at the bedside. Patient denies chest pain or pressure. She reports improvement in her shortness of breath and lower extremity edema. She remains on IV Lasix. Blood pressure running on the lower side with a systolic between [address]. Echocardiogram completed revealing ejection fraction 10-15% with severe MR and moderate to severe TR 09/08/2023 Patient examined this morning at the bedside. Patient denies chest pain or pressure. She denies shortness of breath. She has been transitioned to oral La six. Blood pressure stable with a reading of 109/71. Telemetry reveals sinus mechanism with a heart rate between 22830. PHYSICAL EXAM: VITAL SIGNS: Reviewed. GENERAL: Well-developed in no acute distress. HEENT: Head is normocephalic. Pupils are equal, round. Sclerae anicteric. Mucous membranes of the mouth are moist. Neck supple. No JVD or thyromegaly LUNGS: Respirations even and unlabored. Lungs diminished bilaterally at the bases. HEART: Regular rate and rhythm. S1 and S2 heard. Systolic murmur noted. ABDOMEN: Soft. Nondistended. Nontender. EXTREMITIES: Normal range of motion. No clubbing or cyanosis. Peripheral pulses intact. Trace bilateral lower extremity edema noted NEUROLOGIC: Awake and alert. Oriented x 3. ASSESSMENT: Shortness of breath Acute on chronic heart failure with reduced ejection fraction; 30-35% in 2020, now 10-15% Abnormal troponins, flat, likely secondary to above, no evidence of acute coronary syndrome Nonischemic cardiomyopathy Left bundle-branch block Hypertension Hyperlipidemia Medication noncompliance, patient states she has not taken medications in 2 years Valvular heart disease including severe MR and moderate to severe TR PLAN: Continue current cardiac medications We will consider changing lisinopril to Entresto on an outpatient basis if blood pressure can tolerate Consider eventual AICD implantation secondary to cardiomyopathy and left bundle branch block Patient is stable from a cardiac standpoint Patient is to follow up post discharge in the office Nurse practitioner note has been reviewed by physician. Signing provider agrees with the documented findings, assessment, and plan of care. Objective - Vital Signs Vital signs: Vital Signs Temp 97.9 F 09/08/23 08:00 Pulse 96 09/08/23 09:07 Resp 16 09/08/23 08:32 BP 109/71 09/08/23 08:00 Pulse Ox 95 09/08/23 08:00 FiO2 Intake & Output 09/07/23 09/08/23 09/08/23 18:59 06:59 18:59 Intake Total 1790 118 Output Total 1850 750 Balance -60 -750 118 Intake: Oral 1790 118 Output: Urine 1850 750 Other: Voiding Method Toilet - Labs CBC & Chem 7: 09/06/23 08:03 09/08/23 07:59 Labs: Abnormal Lab Results - Last 24 Hours (Table) 10/19/23 Range/Units 07:59 BUN 22 H (7-17) mg/dL Glucose 125 H (74-99) mg/dL
[2023-09-08] MEDS: ATORVASTATIN 20 MG TAB PO SCH (20:25)
[2023-09-09 07:26] VITALS: RESP 16
[2023-09-09] MEDS: SPIRONOLACTONE 25 MG TAB PO SCH (09:14)
[2023-09-09] MEDS: METOPROLOL TARTRATE 25 MG TAB PO SCH (09:15)
[2023-09-09] MEDS: ASPIRIN 81 MG PO SCH (09:16)
[2023-09-09] MEDS: FUROSEMIDE 40 MG TAB PO SCH (09:16)
[2023-09-09] MEDS: DAPAGLIFLOZIN PROPANEDIOL 10 MG TABLET PO SCH (09:17)
[2023-09-09] MEDS: HEPARIN SODIUM,PORCINE 5,000 UNIT/ML 1 ML VIAL SQ SCH (09:24)
[2023-09-09] MEDS: methylPREDNISolone SOD SUCCI 40 MG/ML 1 ML VIAL IV SCH (09:31)
[2023-09-09] MEDS: IPRATROPIUM-ALBUTEROL 3 ML NEB INHALATION SCH ×2 (09:36→12:44)
[2023-09-09 09:38] LABS: African American GFR (CKD) 73 (>60 ml/min/1.73 sqM); Anion Gap 14 mmol/L; Blood Urea Nitrogen 25 mg/dL (7-17); Calcium 9.2 mg/dL (8.4-10.2); Carbon Dioxide 22 mmol/L (22-30); Chloride 101 mmol/L (98-107); Glucose 135 mg/dL (74-99); Non-African American GFR(CKD) 64 (>60 ml/min/1.73 sqM); Potassium 4.7 mmol/L (3.5-5.1); Sodium 137 mmol/L (137-145)
--- NOTE | 2023-09-09 11:02 | P.PN ---
Subjective HISTORY OF PRESENT ILLNESS: This is a 67-year-old female with a past medical history significant for nonischemic cardiomyopathy, left bundle branch block, congestive heart failure, hypertension, and hyperlipidemia. Patient follows in the office with Dr. Ponce but has not been to the office since October 2020. We have been asked to see the patient in consultation for congestive heart failure. Patient examined at the bedside in the emergency room. The patient states that she has not seen a physician in a few years including a human resources analyst or her primary care physician. She also reports she ran out of her medications about 2 years ago and since then has not been taking any medications. She presented to the hospital for chief complaint of shortness of breath. She states she has been feeling short of breath for the past couple weeks and it has been getting progressively worse. She also reports that she began to have some swelling in her lower extremities yesterday. She reports mild chest discomfort when she is laying on her back secondary to her reading difficulty. The patient is a nonsmoker. She reports alcohol use approximately once a week. She denies a high salt diet. * EKG reveals sinus tachycardia with left lung branch block. * Chest xray COPD with bilateral lower lobe infiltrate and small effusion. Correlate for mild venous congestion. * Chest CT: Negative for pulmonary embolism. Small right pleural effusion. Minimal left pleural effusion. * Laboratory data: WBC 4.4. Hemoglobin 12.0. Platelet account 133. D-dimer 3.28. Sodium 134. Potassium 4.8. BUN 19. Creatinine 0.9. ProBNP 15,400. Troponin 0.881. 0.779. 0.833. * Current home cardiac medications include none * Most recent echocardiogram obtained in October 2020 revealed ejection fraction 30-35%, iyds-[id number] mitral regurgitation, and mild tricuspid regurgitation * Cardiac catheterization history: December 2009 revealing normal coronary arteries 09/07/2023 Patient examined this morning at the bedside. Patient denies chest pain or pressure. She reports improvement in her shortness of breath and lower extremity edema. She remains on IV Lasix. Blood pressure running on the lower side with a systolic between [address]. Echocardiogram completed revealing ejection fraction 10-15% with severe MR and moderate to severe TR 09/08/2023 Patient examined this morning at the bedside. Patient denies chest pain or pressure. She denies shortness of breath. She has been transitioned to oral La six. Blood pressure stable with a reading of 109/71. Telemetry reveals sinus mechanism with a heart rate between 70485. 09/09/2023 Patient examined this morning at the bedside. Patient denies chest pain or pressure. She denies shortness of breath. She reports having mild palpitations this morning. She has been up ambulating to the bathroom. Blood pressure is stable. PHYSICAL EXAM: VITAL SIGNS: Reviewed. GENERAL: Well-developed in no acute distress. HEENT: Head is normocephalic. Pupils are equal, round. Sclerae anicteric. Mucous membranes of the mouth are moist. Neck supple. No JVD or thyromegaly LUNGS: Respirations even and unlabored. Lungs diminished bilaterally at the bases. HEART: Regular rate and rhythm. S1 and S2 heard. Systolic murmur noted. ABDOMEN: Soft. Nondistended. Nontender. EXTREMITIES: Normal range of motion. No clubbing or cyanosis. Peripheral pulses intact. No lower extremity edema noted NEUROLOGIC: Awake and alert. Oriented x 3. ASSESSMENT: Shortness of breath Acute on chronic heart failure with reduced ejection fraction; 30-35% in 2019, now 10-15% Abnormal troponins, flat, likely secondary to above, no evidence of acute coronary syndrome Nonischemic cardiomyopathy Left bundle-branch block Hypertension Hyperlipidemia Medication noncompliance, patient states she has not taken medications in 2 years Valvular heart disease including severe MR and moderate to severe TR PLAN: Continue current cardiac medications We will consider changing lisinopril to Entresto on an outpatient basis if blood pressure can tolerate Consider eventual AICD implantation secondary to cardiomyopathy and left bundle branch block Patient is stable for discharge from a cardiac standpoint Patient is to follow up post discharge in the office Nurse practitioner note has been reviewed by physician. Signing provider agrees with the documented findings, assessment, and plan of care. Objective - Vital Signs Vital signs: Vital Signs Temp 98.1 F 09/09/23 07:20 Pulse 108 H 09/09/23 09:49 Resp 16 09/09/23 07:20 BP 106/69 09/09/23 07:20 Pulse Ox 94 L 09/09/23 07:20 FiO2 Intake & Output 09/08/23 09/09/23 09/09/23 18:59 06:59 18:59 Intake Total 592 540 600 Output Total 600 Balance 592 -60 600 Weight 57 kg Intake: Oral 592 540 600 Output: Urine 600 Other: Voiding Method Toilet Toilet # Voids 1 - Labs CBC & Chem 7: 09/06/23 08:03 09/09/23 08:33 Labs: Abnormal Lab Results - Last 24 Hours (Table) 09/09/23 Range/Units 08:33 BUN 25 H (7-17) mg/dL Glucose 135 H (74-99) mg/dL
[2023-09-09 11:50] VITALS: BP 96/66; PULSE 67; TEMP 97.6
--- NOTE | 2023-09-09 16:56 | CDI ---
Documentation Clarification Form Date: 09/07/2023 01:36:00 PM From: Anabel Correia Phone: [phone] Admit Date: 09/05/2023 04:26:00 PM Patient Name: Chel Downey Visit Number: [id number] Discharge Date: 09/09/2023 04:05:00 PM ATTENTION: The Clinical Documentation Specialists (CDI) and [facility] Coding Staff appreciate your assistance in clarifying documentation. Please respond to the clarification below the line at the bottom and electronically sign. The CDI & [facility] Coding staff will review the response and follow-up if needed. Please note: Queries are made part of the Legal Health Record. If you have any questions, please contact the author of this message via ITS. Dr. Vinay Zamora Your patient has increased troponin levels on admission. Please clarify if there is an additional diagnosis and/or clinical significance related to this value. Patient history/risk factors: "67-year-old female who presents to the emergency department for shortness of breath. Reports increasing shortness of breath over the last 2 weeks. She went to urgent care today and had a chest x-ray done, demonstrating fluid on the lungs." - Per ED Note on 09/05 Clinical indicators: "presented to the hospital for chief complaint of shortness of breath." "reports mild chest discomfort when she is laying on her back" "EKG reveals sinus tachycardia with left lung branch block" "Acute on chronic heart failure with reduced ejection fraction" "Abnormal troponins, flat, likely secondary to above" - Per Cardiology Note on 09/06 Troponin 0.881. 0.779. 0.833.DDDD Treatment: Per Cardiology Note on 09/06 "Begin IV Lasix 40 mg every 12 hours Continue metoprolol tartrate 25 mg twice a day Add Aldactone 25 mg daily, aspirin 81 mg daily, Lipitor 20 mg daily, and Farxiga 10mg daily Will add NICK/ARB tomorrow if blood pressure can tolerate" Is there an additional diagnosis and/or clinical significance related to the above lab result/information: [ ] Type 2 IN due to Acute on Chronic heart failure [ ] Non-ischemic with acute myocardial injury [ ] No additional diagnosis/Not clinically significant [ ] Other, please specify [ ] Unable to determine MTDD
--- NOTE | 2023-09-09 22:34 | PN ---
PROGRESS NOTE SUBJECTIVE: This is a 67-year-old white female. She has hemoglobin of 12, creatinine 0.9. She has 10% to 15% ejection fraction, recent heart catheterization in 2009. She feels better every day. She is up ambulating. OBJECTIVE: CARDIOVASCULAR: S1, S2. LUNGS: Scattered wheeze. HEMATOLOGY: Negative for Homans. PSYCH: Fair mood and affect. ASSESSMENT: Acute on chronic systolic ejection fracture 10% to 15%, nonischemic cardiomyopathy, bundle-branch block, hypertension, dyslipidemia, moderate to severe tricuspid regurg and mitral regurg, outpatient biopsy, AICD implantation, left bundle-branch block. She is stable for discharge, will possibly discharge her home today. MMODL / IJN: [id number] /
--- NOTE | 2023-09-14 16:00 | CDI ---
Documentation Clarification Form Date: 09/07/2023 01:36:00 PM From: Anabel Correia Phone: [phone] Admit Date: 09/05/2023 04:26:00 PM Patient Name: Chel Downey Visit Number: [id number] Discharge Date: 09/09/2023 04:05:00 PM ATTENTION: The Clinical Documentation Specialists (CDI) and [facility] Coding Staff appreciate your assistance in clarifying documentation. Please respond to the clarification below the line at the bottom and electronically sign. The CDI & [facility] Coding staff will review the response and follow-up if needed. Please note: Queries are made part of the Legal Health Record. If you have any questions, please contact the author of this message via ITS. Dr. Vinay Zamora Your patient has increased troponin levels on admission. Please clarify if there is an additional diagnosis and/or clinical significance related to this value. Patient history/risk factors: "67-year-old female who presents to the emergency department for shortness of breath. Reports increasing shortness of breath over the last 2 weeks. She went to urgent care today and had a chest x-ray done, demonstrating fluid on the lungs." - Per ED Note on 09/05 Clinical indicators: "presented to the hospital for chief complaint of shortness of breath." "reports mild chest discomfort when she is laying on her back" "EKG reveals sinus tachycardia with left lung branch block" "Acute on chronic heart failure with reduced ejection fraction" "Abnormal troponins, flat, likely secondary to above" - Per Cardiology Note on 09/06 Troponin 0.881. 0.779. 0.833.DDDD Treatment: Per Cardiology Note on 09/06 "Begin IV Lasix 40 mg every 12 hours Continue metoprolol tartrate 25 mg twice a day Add Aldactone 25 mg daily, aspirin 81 mg daily, Lipitor 20 mg daily, and Farxiga 10mg daily Will add NICK/ARB tomorrow if blood pressure can tolerate" Is there an additional diagnosis and/or clinical significance related to the above lab result/information: [ ] Type 2 CO due to Acute on Chronic heart failure [ ] Non-ischemic with acute myocardial injury [ ] No additional diagnosis/Not clinically significant [ ] Other, please specify [ ] Unable to determine MTDD
--- NOTE | 2023-09-22 01:31 | DS ---
DISCHARGE SUMMARY DISCHARGE MEDICATIONS: 1. Aldactone 25 mg daily. 2. DuoNeb q.i.d. 3. Lasix 40 mg daily. 4. Lipitor 20 mg daily. 5. Lopressor 25 b.i.d. 6. Zestril 2.5 daily. 7. Aspirin 81 daily. 8. Farxiga 10 mg daily. CONDITION: Stable. PROGNOSIS: Guarded. Ambulate as tolerated. The patient came to the hospital with some chest pain. She had a chest CTA for elevated D-dimer for pulmonary embolism, which is negative for PE, , elevated pulmonary artery diameters. Cardiology saw the patient. Echo showed ejection fraction of 46%. She had severe left ventricular ejection fraction 10% to 15% only, biatrial enlargement, [id number] pulmonary insufficiency, severe regurgitation, tricuspid valve. She was started on breathing treatments for COPD. Continue on current medications from Cardiology, which include beta-blockers and cholesterol medications. She had low blood pressure for last few days and elevated heart rate 112. Blood pressure was low at 96/66 despite multiple medicines for heart failure. Orthostatic changes were checked. Follow up in office. Prognosis guarded. Ambulate as tolerated. Please see further orders. MMODL / IJN: [id number] /
== END 2023-09-09 16:05 | disposition home or self-care (01) | DRG 291 ==
LOC: EC 11:51 → 3SCARD 16:26
PROVIDERS: ADMIT Family Medicine; ATTEND Family Medicine
DX: I11.0 Hypertensive heart disease with heart failure (principal); I50.43 Acute on chronic combined systolic (congestive) and diastolic (congestive) heart failure; I08.1 Rheumatic disorders of both mitral and tricuspid valves; I27.20 Pulmonary hypertension, unspecified; I42.8 Other cardiomyopathies; R00.0 Tachycardia, unspecified; I44.7 Left bundle-branch block, unspecified; Z91.148 Patient's other noncompliance with medication regimen for other reason; R79.1 Abnormal coagulation profile; E78.5 Hyperlipidemia, unspecified; F41.9 Anxiety disorder, unspecified; R79.89 Other specified abnormal findings of blood chemistry; Z11.52 Encounter for screening for COVID-19
CPT/HCPCS: 36415; 71046; 71275; 80048; 80053; 82140; 83605; 83880; 84484; 85025; 85379; 85610; 85730; 87636; 93005; 93306; 94640; 94760; 96365; 96366; 96375; 96376; 99285

== ENCOUNTER → 2024-05-10 | Day surgery (SDC) | payer MEDICARE ==
[2024-05-08 11:49] VITALS: BMI 23.0
[~2024-05-10] MED LIST: ALPRAZolam 0.25 MG TAB PO PRN; ALPRAZolam 0.5 MG TAB PO PRN; HEPARIN SODIUM 1,000 UN/ML (10ML VL) ONE; HEPARIN SODIUM,PORCINE (1 ML) 2,500 UNIT in SODIUM CHLORIDE 0.9% 250 ML IRRIGATION PRN; HEPARIN SODIUM,PORCINE 10,000 UNIT in SODIUM CHLORIDE 0.9% 1,000 ML IRRIGATION PRN; LIDOCAINE 1% INJ 10MG/ML (20 ML MDV) ONE; NITROGLYCERIN SL TABS 0.4 MG TAB SUBLINGUAL PRN; VERAPAMIL 2.5 MG/ML 2 ML AMP ONE; fentaNYL (PF) 50 MCG/ML 2 ML AMP ONE
[2024-05-10] MEDS: SODIUM CHLORIDE 0.9% 1,000 ML IV ONE (06:41)
[2024-05-10] MEDS: SODIUM CHLORIDE 0.9% 1,000 ML in EMPTY BAG 1 BAG IV SCH (06:47)
[2024-05-10 07:12] VITALS: RESP 16; TEMP 97.6
[2024-05-10 07:13] LABS: Basophils # (A) 0.1 k/uL (0-0.2); Basophils % (A) 1 %; Eosinophils # (A) 0.2 k/uL (0-0.7); Eosinophils % (A) 4 %; HCT 36.8 % (34.0-46.0); HGB 12.1 gm/dL (11.4-16.0); Lymphocytes # (A) 1.9 k/uL (1.0-4.8); Lymphocytes % (A) 41 %; MCH 33.1 pg (25.0-35.0); MCHC 32.8 g/dL (31.0-37.0); Monocytes # (A) 0.4 k/uL (0-1.0); Monocytes % (A) 8 %; Neutrophils # (A) 1.9 k/uL (1.3-7.7); Neutrophils % (A) 43 %; Platelet Count 142 k/uL (150-450); RBC 3.65 m/uL (3.80-5.40); RDW 12.5 % (11.5-15.5); WBC 4.5 k/uL (3.8-10.6)
[2024-05-10] MEDS: fentaNYL (PF) 50 MCG/ML 2 ML AMP IVP ONE (08:00)
[2024-05-10] MEDS: MIDAZOLAM 2 MG/2 ML VIAL IVP ONE (08:00)
[2024-05-10] MEDS: LIDOCAINE 1% INJ 10MG/ML (20 ML MDV) SQ ONE (08:01)
[2024-05-10] MEDS: VERAPAMIL SYRINGE (5 MG/10 ML) INTRAARTER ONE (08:07)
[2024-05-10] MEDS: ASPIRIN 325 MG TAB PO ONE (08:20)
[2024-05-10] MEDS: ATORVASTATIN 80 MG TAB PO ONE (08:21)
[2024-05-10] MEDS: VERAPAMIL 2.5 MG/ML 2 ML AMP INTRAARTER ONE (08:27)
[2024-05-10] MEDS: HEPARIN SODIUM 1,000 UN/ML (10ML VL) IVP ONE (08:30)
[2024-05-10] MEDS: IOPAMIDOL-370 200ML BTL INJ ONE (08:36)
[2024-05-10 08:49] LABS: O2 Sat Blood Gas 81.3 %
[2024-05-10 08:50] LABS: O2 Sat Blood Gas 80.9 %
[2024-05-10 13:03] VITALS: BP 107/58; PULSE 64
--- NOTE | 2024-05-11 09:44 | P.CARDCATH ---
Date of Procedure: 05/10/24 Description of Procedure: DIAGNOSTIC CORONARY ANGIOGRAPHY and, RIGHT and LEFT HEART CATH REPORT PROCEDURES PERFORMED: Left heart catheterization Right heart catheterization Selective coronary angiography Moderate conscious sedation 36 mins Ultrasound assisted right radial access INDICATION: New onset cardiomyopathy 68-year-old female was found to have a new onset of cardiomyopathy with a EF documented by transthoracic echocardiogram at 20 to 25%. For this she was scheduled for left and right heart catheterization procedure. CONSENT: I have explained the procedural steps of above-mentioned procedures in layman's terms to the patient. I discussed the risks (including but not limited to stroke, emergent vascular or cardiac surgery or ), benefits and alternative therapies for the above-mentioned procedure. I discussed the risks of sedation/analgesia and blood product administration (if indicated). The patient has indicated understanding and acceptance of these risks. Conscious Sedation: Patient's ECG, heart rate, blood pressure, pulse oximetry were monitored throughout the duration of procedure under my direct supervision. 1 mg Versed and 50 mg Fentanyl were used for induction of moderate conscious sedation. Total duration of moderate concious sedation 36 minutes. PROCEDURE: After explaining the risks, benefits and alternatives of the above mentioned procedures in detail to the patient, informed consent was obtained. Patient was taken to the catheterization lab, prepped and draped in usual sterile fashion using universal precuations. Barbow and daryl test were performed to confirm adequate perfusion to fingers. Ultrasound was used to identify the radial artery. 1% lidocaine was infiltrated over the right radial artery. A 6-Indian sheath was placed and secured in the right radial artery using modified Seldinger technique. The sheath was flushed and 5 mg verapamil was administered intra-arterially. Right antecubital vein IV cannula was exchanged over the wire for a 6 Indian slender glide sheath after infiltrating 1% lidocaine in the antecubital fossa. The sheath was secured and flushed. A 6 Indian [employer]-Lou catheter was advanced to the sheath. Under fluoroscopy guidance and with appropriate tip balloon inflated it was advanced to the wedge position. Wedge pressures were obtained, the tip balloon was deflated and the catheter was placed in the pulmonary artery. Pulmonary artery pressures were obtained, oxygen saturation samples were obtained, thermodilution study was performed. Sequential pressures from right ventricle and right atrium along with blood samples for oxygen saturations were obtained under fluoroscopy guidance. The Mutual-Lou catheter was removed and the sheath was flushed. J tipped wire was advanced under fluoroscopic guidance. Once the wire tip reached aortic root 4000 units of IV heparin was given. Over the wire JR4 diagnostic catheter was advanced. The wire in place the catheter was manipulated to cross the aortic valve and entered into LV under fluoroscopy guidance. The wire was removed and the catheter was flushed. LV pressures were obtained and pullback was performed under fluoroscopy. Catheter was manipulated to selectively engage the right coronary ostium. Right coronary angiography was performed in different angiographic projections. The JR4 diagnostic catheter was exchanged for a JL 3.5 diagnostic catheter over the J-wire. The wire was removed, catheter was flushed and manipulated under fluoroscopy to selectively engaged the left coronary ostium. Left coronary angioplasty was performed in different angiographic projections. Catheter was removed over the wire. Radial sheath was flushed. The right radial sheath was removed and a TR band was placed with excellent patent hemostasis was achieved. The patient tolerated the procedure well. Patient was transported back to the post catheterization holding area in stable condition. Angiographic images were reviewed in detail. HEMODYNAMICS: Aortic Pressure: 110/50 mmHg. LV pressure: 112/2 mmHg. LVEDP 7 mmHg. There was no significant gradient across the aortic valve. RIGHT HEART CATHETERIZATION Mean wedge pressure 7 mmHg. A wave 6 mmHg, V wave 12 mmHg PA pressure 23/8 mmHg, mean PA pressure 18 mmHg RV pressure 25/0 mmHg, RVEDP 4 mmHg Mean RA pressure 4 mmHg Thermodilution cardiac output 4.05 L/min. Thermodilution cardiac index 2.47 L/min/m FiO2 30% (room air +3 L oxygen) Hemoglobin 10.2 Arterial sat 100% PA sat 81% RV sat 81% RA sat 81% Glenys cardiac output 8.9 L/min Glenys cardiac index 5 L/min/m SELECTIVE CORONARY ARTERIOGRAPHY: LEFT MAIN: The left main is a large caliber vessel which bifurcates into the LAD and circumflex. Left main appears angiographically normal. LEFT ANTERIOR DESCENDING CORONARY ARTERY: LAD is a large caliber vessel which wraps around to the apex. Proximal LAD appears angiographically normal. Mid LAD appears angiographically normal. Distal LAD appears angiographically normal. Gives rise to small diagonal branches which are tortuous and appears angiographically normal. LEFT CIRCUMFLEX CORONARY ARTERY: It is nondominant vessel. Left circumflex is a moderate caliber vessel. It appears angiographically normal. It gives rise to OM branches are tortuous and are angiographically normal. RIGHT CORONARY ARTERY: Dominant vessel. The right coronary artery is a large caliber vessel which gives PDA and PLV branch. It appears angiographically normal. IMPRESSION: Angiographically normal coronary arteries as described above. Normal left sided filling pressures Normal right-sided pressures with normal pulmonary capillary wedge pressure Normal cardiac output and cardiac index PLAN: GDMT for nonischemic cardiomyopathy 125 cc/h for 4 hours of normal saline fluids. Discharged home in 4 hours Outpatient follow-up with Dr. Ponce Performing Physician Vasquez Anderson MD, FACC, RPVI Thank you for allowing [facility] to participate in this patient's care. Feel free to reach out in case of any followup questions.
== END ==
LOC: CATHCVL 06:03
PROVIDERS: ATTEND Student in an Organized Health Care Education/Training Program
DX: I42.8 Other cardiomyopathies (principal); I50.22 Chronic systolic (congestive) heart failure; I34.0 Nonrheumatic mitral (valve) insufficiency; I44.7 Left bundle-branch block, unspecified; Z79.82 Long term (current) use of aspirin; Z79.899 Other long term (current) drug therapy
CPT/HCPCS: 99152; 99153; 93460; 85018; 82810; 85025; C1769 ×2; C1894; C1751; J2250; J2001; J3010; J1644; Q9967

== ENCOUNTER 2024-08-21 09:22 | Observation (INO) | payer MEDICARE ==
[2024-08-21 10:09] LABS: Basophils % (A) 1 %; Eosinophils # (A) 0.1 k/uL (0-0.7); Eosinophils % (A) 2 %; HCT 36.5 % (34.0-46.0); HGB 12.3 gm/dL (11.4-16.0); Lymphocytes # (A) 1.7 k/uL (1.0-4.8); Lymphocytes % (A) 37 %; MCH 33.1 pg (25.0-35.0); MCHC 33.6 g/dL (31.0-37.0); MCV 98.4 fL (80.0-100.0); Mean Platelet Volume 7.8; Monocytes # (A) 0.3 k/uL (0-1.0); Monocytes % (A) 6 %; Neutrophils # (A) 2.3 k/uL (1.3-7.7); Neutrophils % (A) 50 %; Platelet Count 161 k/uL (150-450); RBC 3.71 m/uL (3.80-5.40); RDW 12.3 % (11.5-15.5); WBC 4.6 k/uL (3.8-10.6)
[2024-08-21 10:13] LABS: Potassium 3.8 mmol/L (3.5-5.1)
[2024-08-21] MEDS: SODIUM CHLORIDE 0.9% 1,000 ML IV SCH (10:13)
[2024-08-21 10:14] LABS: ALT 22 U/L (4-34); AST 33 U/L (14-36); African American GFR (CKD) 80 (>60 ml/min/1.73 sqM); Albumin 4.6 g/dL (3.5-5.0); Alkaline Phosphatase 92 U/L (38-126); Anion Gap 9 mmol/L; Blood Urea Nitrogen 12 mg/dL (7-17); Calcium 9.6 mg/dL (8.4-10.2); Carbon Dioxide 28 mmol/L (22-30); Chloride 104 mmol/L (98-107); Glucose 100 mg/dL (74-99); Non-African American GFR(CKD) 69 (>60 ml/min/1.73 sqM); Sodium 141 mmol/L (137-145); Total Bilirubin 0.7 mg/dL (0.2-1.3); Total Protein 7.2 g/dL (6.3-8.2)
[2024-08-21] MEDS ORDERED: MIDAZOLAM 2 MG/2 ML VIAL ONE (11:35)
[2024-08-21] MEDS ORDERED: PROPOFOL 10 MG/ML 20 ML VIAL IV ONE (11:35)
[2024-08-21] MEDS ORDERED: fentaNYL (PF) 50 MCG/ML 2 ML AMP ONE (11:35)
[2024-08-21] MEDS ORDERED: ONDANSETRON 4 MG/2 ML VIAL ONE (11:35)
[2024-08-21] MEDS ORDERED: LIDOCAINE 1% INJ 10MG/ML (20 ML MDV) ONE (11:35)
[2024-08-21] MEDS ORDERED: diphenhydrAMINE 50 MG/ML 1 ML VIAL ONE (11:35)
[2024-08-21] MEDS: SODIUM CHLORIDE 0.9% 500 ML 500 ML IV ONE (11:35)
[2024-08-21] MEDS: HEPARIN SODIUM,PORCINE (1 ML) 2,500 UNIT in SODIUM CHLORIDE 0.9% 250 ML IRRIGATION ONE (11:41)
[2024-08-21] MEDS: IOPAMIDOL-250 100ML BTL IVP ONE (11:54)
[2024-08-21] MEDS: ROPIVACAINE 5 MG/ML 30 ML VIAL MISCELLANE ONE (12:37)
[2024-08-21] MEDS: LIDOCAINE 1% INJ 10MG/ML (20 ML MDV) SQ ONE (12:37)
[2024-08-21] MEDS: ceFAZolin 1 GM in SODIUM CHLORIDE 0.9% IRRIG BTL 250 ML IRRIGATION PRN (14:08)
[2024-08-21] MEDS ORDERED: ACETAMINOPHEN TAB 325 MG TAB PO PRN (14:43)
--- NOTE | 2024-08-21 14:52 | P.EPPROC ---
- EP Procedure Note Electrophysiology Procedure Note: Diagnosis Cardiomyopathy, chronic, nonischemic with normal coronary arteries Congestive heart failure [place] Heart Association class class II-III Wide QRS 163 ms, left bundle branch block morphology On guide line directed medical treatment for greater than 3 months Procedure: Biventricular ICD implantation for management of risk of sudden cardiac and congestive heart failure Result: Successful biventricular ICD implantation, Atrial lead: Medtronic 52 cm model #5076 P wave 0.6 mV, pace impedance 589 ohms and pacing threshold 1 V at 0.4 ms, 10 V test negative RV ICD lead: Screwed in the mid RV septum. Model number 6935M, 62 cm in length Medtronic R waves 5-6 mV, pacing impedance 594 ohms and pacing threshold 0. 5 V at 0.4 ms Left ventricular lead: Model #4798, 88 cm in length Medtronic lead implanted in the anterolateral vein but the final position was lateral on the DERICK view diaphragmatic stimulation from LV 1-2 No diaphragmatic stimulation proximal to that Pacing threshold 2 V at 0.4 ms and pacing pins of 608 ohms LV 3-4 Procedure details: Patient was brought to the EP lab in a fasting state. Written informed consent was obtained prior to the procedure. Options, pros and cons, benefits and risks and complications discussed with patient in detail prior to the procedure (shared decision making) previously. Importance of continuing medical treatment emphasized previously. Alternatives discussed previously. Left upper extremity venogram performed. 15 mL IV dye injected in the left arm. Patent axillary/subclavian vein The left pectoral area was prepped and draped as a protocol. IV antibiotics administered 1% lidocaine was used for local anesthesia. A 4 cm incision was made parallel to the deltopectoral groove, about 1.5 cm medial to it. The incision was carried down to the level of the pectoralis muscle and the subfascial pocket was made. Hemostasis was assured. The axillary vein access was obtained. Appropriately sized into to see sheaths were placed. ICD lead implanted in the right ventricle mid septum and screwed in. ICD lead tested for threshold, sensing, impedances and tested with high output pacing for diaphragmatic stimulation. Negative diaphragmatic stimulation Atrial lead placed in the right atrial appendage and tested for threshold, sensing, impedance, and tested with high output pacing. Phrenic nerve stimulation negative Coronary sinus/left ventricular epicardial lead placement via the anterolateral vein with a more lateral positioning. Diaphragmatic stimulation LV 1-2. No diaphragmatic stimulation and better thresholds in the proximal poles Leads secured to the underlying pectoral muscle after removing sheaths . Pocket irrigated with antibiotic solution. Antibiotic pouch placed Leads connected to the biventricular ICD generator. Wound closed in 3 layers and dressed per protocol Biventricular ICD interrogated and programmed. Appropriate pacing parameters, antitachycardia therapies with antitachycardia pacing cardioversion defibrillations programmed. AV delay of 130 ms paced, simultaneous LV-RV pacing achieved a QRS width of 140 ms Patient tolerated the procedure well without any acute complications. See scanned device report in EMR for lead details
--- NOTE | 2024-08-21 14:53 | P.PRLE ---
RE: Chel Downey Dear Thania Milligan Shayan underwent implantation of a BiV ICD for severe nonischemic cardiomyopathy with congestive heart failure class II-III with an underlying left bundle branch block pattern with a very wide QRS. Hopefully with left ventricular pacing, her congestive heart failure status and LV function improves. She will continue her guideline directed medical treatment Thank you for entrusting me with the care of the patient Warm regards Sincerely Yaya Ponce
[2024-08-21] MEDS: SACUBITRIL/VALSARTAN 24 MG-26 MG TABLET PO SCH (21:00)
[2024-08-21] MEDS: ATORVASTATIN 20 MG TAB PO SCH (21:00)
[2024-08-21] MEDS: ASPIRIN 81 MG PO SCH (21:00)
[2024-08-21] MEDS: ACETAMINOPHEN IV (For NPO) 1,000 MG in EMPTY BAG 1 BAG IVPB ONE (21:01)
--- NOTE | 2024-08-22 07:57 | XR ---
EXAMINATION TYPE: XR chest 2V DATE OF EXAM: 08/22/2024 COMPARISON: 09/05/2023 HISTORY: Lead placement check TECHNIQUE: Frontal and lateral views of the chest are obtained. FINDINGS: Scattered senescent parenchymal changes noted. Hyperinflation compatible with COPD. Left-sided pneumothorax is noted estimated at 20-25%. Dual-lead pacer is identified with leads within the right atrium and right ventricle. The left lung is clear. No evidence for infiltrate. No evidence for atelectasis. Heart size is stable. Mediastinal structures are stable and grossly unremarkable. No evidence for hilar prominence. Degenerative changes dorsal spine. IMPRESSION: 1. Left-sided pneumothorax is noted estimated at 2025%. 2. Dual-lead pacer. A [place] level critical message alert has been initiated for Yaya Ponce MD via the [employer] Critical Results System on 08/22/2024 7:54 AM. This message alert has been sent to Yaya Ponce MD v ia the preferences provided by the clinician for the receipt of Radiology Critical Findings. Message ID [id number]. [facility], , 08/22/2024 7:55 AM
[2024-08-22] MEDS: FUROSEMIDE 40 MG TAB PO SCH (10:42)
[2024-08-22] MEDS: DIGOXIN 125 MCG TAB PO SCH (10:43)
--- NOTE | 2024-08-22 11:53 | XR ---
EXAMINATION TYPE: XR chest 1V portable DATE OF EXAM: 08/22/2024 10:56 AM CLINICAL INDICATION: Female, 68 years old with history of LEFT PNEUMOTHORAX; H COMPARISON: Chest radiographs from 08/22/2024 TECHNIQUE: XR chest 1V portable Frontal view of the chest. FINDINGS: Lungs/Pleura: There is flattening of the diaphragm with increased lucency of the lungs. No evidence o f pneumothorax, pleural effusion or focal consolidation. Pulmonary vascularity: Unremarkable. Heart/mediastinum: Cardiomediastinal silhouette is unremarkable. Three lead cardiac conduction device overlying the left hemithorax with lead tips projecting over the right ventricle, right atrium and c oronary sinus. Musculoskeletal: No acute osseous pathology. Other findings: None Lines/Tubes: IMPRESSION: 1. No acute cardiopulmonary disease process. 2. COPD changes. [facility], , 08/22/2024 11:51 AM
[2024-08-22] MEDS ORDERED: METOPROLOL SUCCINATE (ER) 50 MG TAB.ER.24H PO SCH (12:00)
[2024-08-22] MEDS: METOPROLOL SUCCINATE (ER) 50 MG TAB.ER.24H PO SCH (12:29)
[2024-08-22] MEDS: SPIRONOLACTONE 25 MG TAB PO SCH (12:30)
--- NOTE | 2024-08-22 13:43 | P.CNPUL ---
History of Present Illness Consult date: 08/22/24 Requesting physician: Yaya Ponce Reason for consult: pneumothorax, abnormal CXR/CT Chief complaint: Nonischemic cardiomyopathy, CHF History of present illness: This is a very pleasant 68-year-old female patient with a known history of hypertension, hyperlipidemia, nonischemic cardiomyopathy, congestive heart failure, left bundle branch block who was brought in yesterday electively for biventricular ICD placement with Dr. Ponce. Overall, the procedure went very well. However a follow-up chest x-ray this morning revealed evidence of a 20 to 25% left-sided pneumothorax. She is seen today in consultation on the regular medical floor. She is currently sitting up in bed. Awake and alert in no acute distress. Maintaining good O2 saturation in the 90s on room air. She denies any shortness of breath. No chest pain. White count 4.6. Hemoglobin 12.3. Sodium 141. Potassium 3.8. Bicarb 28. BUN 12. Creatinine 0.80. Glucose 100. Review of Systems REVIEW OF SYSTEMS: CONSTITUTIONAL: Denies any recent significant weight loss or weight gain. EYES: Denies change in vision. EARS, NOSE, MOUTH, THROAT: Denies headaches, denies sore throat. CARDIOVASCULAR: Denies chest pain, palpitations or syncopal episodes. RESPIRATORY: Denies shortness of breath, cough, congestion or hemoptysis. GASTROINTESTINAL: Denies change in appetite, denies abdominal pain GENITOURINARY: Denies hematuria, denies infections. MUSKULOSKELETAL: Denies pain, denies swelling. INTEGUMENTARY: Denies rash, denies eczema. NEUROLOGICAL: Denies recent memory loss, no recent seizure activity. PSYCHIATRIC: Denies anxiety, denies depression. HEMATOLOGIC/LYMPHATIC: Denies anemia, denies enlarged lymph nodes. Past Medical History Past Medical History: Heart Failure, Hyperlipidemia, Osteoarthritis (OA) Additional Past Medical History / Comment(s): leaky heart valve, see Dr Ponce H & P History of Any Multi-Drug Resistant Organisms: None Reported Past Surgical History: Heart Catheterization Additional Past Surgical History / Comment(s): COLONOSCOPY Past Anesthesia/Blood Transfusion Reactions: No Reported Reaction Smoking Status: Never smoker - Past Family History Mother Family Medical History: Cancer, GI Bleed Additional Family Medical History / Comment(s): breast cancer Father Family Medical History: Cancer Additional Family Medical History / Comment(s): lung cancer Medications and Allergies Home Medications Medication Instructions Recorded Confirmed Type Atorvastatin [Lipitor] 20 mg PO HS 90 Days #90 tab 09/09/23 08/16/24 Rx Furosemide [Lasix] 40 mg PO DAILY 30 Days #30 tab 09/09/23 08/16/24 Rx Digoxin [Digitek] 125 mcg PO DAILY 05/08/24 08/16/24 History Metoprolol Succinate (ER) [Toprol 50 mg PO DAILY@1200 05/08/24 08/16/24 History XL] Sacubitril/Valsartan [Entresto 24 1 each PO BID 05/08/24 08/16/24 History mg-26 mg Tablet] Spironolactone [Aldactone] 12.5 mg PO 1200 05/08/24 08/16/24 History Aspirin 81 mg PO HS 08/16/24 08/16/24 History Allergies Allergy/AdvReac Type Severity Reaction Status Date / Time No Known Allergies Allergy Verified 08/21/24 17:03 Physical Exam Vitals: Vital Signs Temp Pulse Resp BP BP Pulse Ox 08/22/24 11:03 18 96 08/22/24 08:00 16 08/22/24 07:00 98.5 F 90 16 117/71 94 L 08/22/24 02:00 98.1 F 67 16 101/55 95 08/21/24 20:00 16 08/21/24 19:14 98.1 F 97 16 107/63 97 08/21/24 18:45 86 102/58 97 08/21/24 17:52 84 112/67 98 08/21/24 16:15 75 90/52 93 L 08/21/24 15:45 69 96/58 92 L 08/21/24 15:30 66 105/61 93 L 08/21/24 15:15 69 114/72 99 08/21/24 15:00 97.8 F 67 104/69 100 Intake and Output 08/21/24 08/22/24 08/22/24 22:59 06:59 14:59 Intake Total 118 240 Balance 118 240 Intake: Oral 118 240 Other: Voiding Method Toilet Toilet Toilet # Voids 1 2 Weight 61.5 kg GENERAL EXAM: Alert, pleasant 68-year-old female, on room air, comfortable in no apparent distress. HEAD: Normocephalic. EYES: Normal reaction of pupils, equal size. NOSE: Clear with pink turbinates. THROAT: No erythema or exudates. NECK: No masses, no JVD. CHEST: No chest wall deformity. Dressing to the left subclavian ICD site dry and intact. LUNGS: Equal air entry with no crackles, wheeze, rhonchi or dullness. CVS: S1 and S2 normal with no audible murmur, regular rhythm. ABDOMEN: No hepatosplenomegaly, normal bowel sounds, no guarding or rigidity. SPINE: No scoliosis or deformity SKIN: No rashes CENTRAL NERVOUS SYSTEM: No focal deficits, tone is normal in all 4 extremities. EXTREMITIES: There is no peripheral edema. No clubbing, no cyanosis. Peripheral pulses are intact. Results - Laboratory Findings CBC and BMP: 08/21/24 09:30 08/21/24 09:30 Abnormal lab findings: Abnormal Labs 08/21/24 08/21/24 09:30 09:30 RBC 3.71 L Glucose 100 H - Diagnostic Findings Chest x-ray: image reviewed Assessment and Plan Assessment: Nonischemic cardiomyopathy with an ejection fraction less than 20%, status post biventricular AICD placement on 08/21/2024 Iatrogenic left-sided pneumothorax Hyperlipidemia Hypertension Plan: The patient was seen and evaluated Chest x-ray, labs and medications reviewed Patient is stable and on room air Follow-up chest x-ray in 2 hours Thora vent at the bedside if needed We will continue to follow and make further recommendations based on her cl inical status I have personally seen and examined the patient, performed the documentation and the assessment and plan as written. Number of minutes spent on the visit: 20.
[2024-08-22 13:58] VITALS: RESP 16
[2024-08-23 08:09] VITALS: BP 117/70; PULSE 82; TEMP 98.4
--- NOTE | 2024-08-23 08:40 | XR ---
EXAMINATION TYPE: XR chest 2V DATE OF EXAM: 08/23/2024 7:24 AM CLINICAL INDICATION: Female, 68 years old with history of follow up pneumothorax; [facility] COMPARISON: Chest radiographs from 08/22/2024 TECHNIQUE: XR chest 2V Frontal view of the chest. FINDINGS: Lungs/Pleura: Similar left basilar pneumothorax suspected. There is flattening of the diaphragm with increased lucency of the lungs. No evidence of right pneumothorax, pleural effusion or focal consolid ation. Pulmonary vascularity: Unremarkable. Heart/mediastinum: Cardiomediastinal silhouette is unremarkable. Three lead cardiac conduction device overlying the left hemithorax with lead tips projecting over the right ventricle, right atrium and c oronary sinus. Musculoskeletal: No acute osseous pathology. Other findings: None IMPRESSION: 1. Similar small left basilar pneumothorax suspected. 2. COPD changes. [facility], , 08/23/2024 8:38 AM
--- NOTE | 2024-08-23 13:51 | P.PN ---
Subjective Progress Note Date: 08/23/24 This is a very pleasant 68-year-old female patient with a known history of hypertension, hyperlipidemia, nonischemic cardiomyopathy, congestive heart failure, left bundle branch block who was brought in yesterday electively for biventricular ICD placement with Dr. Ponce. Overall, the procedure went very well. However a follow-up chest x-ray this morning revealed evidence of a 20 to 25% left-sided pneumothorax. She is seen today in consultation on the regular medical floor. She is currently sitting up in bed. Awake and alert in no acute distress. Maintaining good O2 saturation in the 90s on room air. She denies any shortness of breath. No chest pain. White count 4.6. Hemoglobin 12.3. S odium 141. Potassium 3.8. Bicarb 28. BUN 12. Creatinine 0.80. Glucose 100. The patient is seen today August 23, 2024 in follow-up on the regular medical floor. She is currently sitting up in bed. Awake and alert in no acute distress. Maintaining good O2 saturations in the 90s on room air. She denies any shortness of breath cough or congestion. No chest pain. Today's chest x- ray reveals similar small left basilar pneumothorax. Evidence of COPD. Objective - Vital Signs Vital signs: Vital Signs Temp 98.4 F 08/23/24 07:00 Pulse 82 08/23/24 07:00 Resp 16 08/23/24 08:00 BP 117/70 08/23/24 07:00 Pulse Ox 97 08/23/24 07:00 FiO2 Intake & Output 08/22/24 08/23/24 08/23/24 18:59 06:59 18:59 Intake Total 476 118 Balance 476 118 Intake: Oral 476 118 Other: Voiding Method Toilet Toilet Toilet # Voids 1 1 - Exam GENERAL EXAM: Alert, active, 68-year-old female, on room air, comfortable in no apparent distress. HEAD: Normocephalic. EYES: Normal reaction of pupils, equal size. NOSE: Clear with pink turbinates. THROAT: No erythema or exudates. NECK: No masses, no JVD. CHEST: No chest wall deformity. Left subclavian dressing dry and intact. LUNGS: Equal air entry with no crackles, wheeze, rhonchi or dullness. CVS: S1 and S2 normal with no audible murmur, regular rhythm. ABDOMEN: No hepatosplenomegaly, normal bowel sounds, no guarding or rigidity. SPINE: No scoliosis or deformity SKIN: No rashes CENTRAL NERVOUS SYSTEM: No focal deficits, tone is normal in all 4 extremities. EXTREMITIES: There is no peripheral edema. No clubbing, no cyanosis. Peripheral pulses are intact. - Labs CBC & Chem 7: 08/21/24 09:30 08/21/24 09:30 Assessment and Plan Assessment: Nonischemic cardiomyopathy with an ejection fraction less than 20%, status post biventricular AICD placement on 08/21/2024 Iatrogenic left-sided pneumothorax Hyperlipidemia Hypertension Plan: The patient was seen and evaluated Chest x-ray and medications reviewed Patient is stable and on room air Cleared for discharge Follow-up with Dr. Murphy in our office in 1 week Will have a follow-up chest x-ray then Educated to return to the hospital should she develop any chest pain or shortness of breath This patient was seen independently by the pulmonary nurse practitioner addressing pulmonary issues I have personally seen and examined the patient, performed the documentation and the assessment and plan as written. Number of minutes spent on the visit: 22.
--- NOTE | 2024-08-30 14:04 | P.PN ---
Subjective Patient is doing well. Denies any chest discomfort dizziness lightheadedness or palpitation Reduced breath sounds over the left lung hayes No chest pain Pulse ox 94 % on room air Chest x-ray shows pneumothorax left side but completely asymptomatic respirations nonlabored normal pulse rate 80s respirations 16-18 Blood pressure 113/66 mmHg Impression Severe cardiomyopathy, nonischemic Status post implantation of BiV ICD for management of heart failure and risk of sudden cardiac Left-sided pneumothorax Stable hemodynamically as well as from a pulmonary standpoint Plan Continue observation on 6 N. Pulmonary consultation Discussed with Dr. Murphy Continue cardiac medications Objective - Vital Signs Vital signs: Vital Signs Temp 98.4 F 08/23/24 07:00 Pulse 82 08/23/24 07:00 Resp 16 08/23/24 08:00 BP 117/70 08/23/24 07:00 Pulse Ox 97 08/23/24 07:00 FiO2 - Labs CBC & Chem 7: 08/21/24 09:30 08/21/24 09:30
--- NOTE | 2024-08-30 14:06 | P.DS ---
Providers Date of admission: 08/22/24 14:18 Attending physician: Yaya Ponce Consults: 08/22/24 08:06 Consult Physician Routine Consulting Provider: Rodrigo Murphy Consult Reason/Comments: Pneumothorax Do you want consulting provider notified?: Already Contacted Primary care physician: Vinay Lazo [facility] Course: Patient is doing well. She was seen by pulmonary medicine yesterday and the recommendation is observation only with a follow-up chest x-ray. No chest tube placement She is completely stable asymptomatic no chest pain no dizziness no lightheadedness no hypoxia On examination blood pressure is 113/66 mmHg pulse rate in the 80s Chest x-ray reveals small left basilar pneumothorax Impression Severe nonischemic cardiomyopathy status post biventricular ICD implantation Postoperative small pneumothorax left side asymptomatic, no respiratory distress no hypoxia Plan Discharge home today, stable from pulmonary standpoint Follow-up with pulmonary medicine in a week Follow-up in the device clinic in 1 week Continue heart failure medications Plan - Discharge Summary Discharge Rx Participant: No New Discharge Prescriptions: Continue Furosemide [Lasix] 40 mg PO DAILY 30 Days #30 tab Atorvastatin [Lipitor] 20 mg PO HS 90 Days #90 tab Spironolactone [Aldactone] 12.5 mg PO 1200 Digoxin [Digitek] 125 mcg PO DAILY Metoprolol Succinate (ER) [Toprol XL] 50 mg PO DAILY@1200 Sacubitril/Valsartan [Entresto 24 mg-26 mg Tablet] 1 each PO BID Aspirin 81 mg PO HS Discharge Medication List Atorvastatin [Lipitor] 20 mg PO HS 90 Days #90 tab 09/09/23 [Rx] Furosemide [Lasix] 40 mg PO DAILY 30 Days #30 tab 09/09/23 [Rx] Digoxin [Digitek] 125 mcg PO DAILY 05/08/24 [History] Metoprolol Succinate (ER) [Toprol XL] 50 mg PO DAILY@1200 05/08/24 [History] Sacubitril/Valsartan [Entresto 24 mg-26 mg Tablet] 1 each PO BID 05/08/24 [History] Spironolactone [Aldactone] 12.5 mg PO 1200 05/08/24 [History] Aspirin 81 mg PO HS 08/16/24 [History] Follow up Appointment(s)/Referral(s): Rodrigo Murphy MD [STAFF PHYSICIAN] - 08/31/24 10:00 am Yaya Ponce MD [STAFF PHYSICIAN] - 08/28/24 4:00 pm (Appointment is at the Device Clinic located at [facility] Main Office on [address] [place] [address]) Patient Instructions/Handouts: Moderate Sedation (DC), Implantable Cardioverter Defibrillator (DC) Activity/Diet/Wound Care/Special Instructions: PATIENT EDUCATION MATERIAL Instructions following a heart rhythm device implant. 1. Keep dressing DRY for 5 DAYS. You may cover the area with Saran or Cling Wrap, prior to a shower. 2. The dressing will be removed in the Device Clinic at [facility]. Absorbable sutures were used to close the wound. 3. Avoid raising the left arm above the shoulder level. 4 week restriction 4. Avoid arm movements, like backscratching, rubbing the head, or pulling on a cord. 4 weeks restriction 5. Gentle range of motion movements of the shoulder, closest to the incision should be performed to avoid a frozen shoulder. (Pendulum exercises of the shoulder) 6. The opposite arm may be used freely. 7. Avoid driving for 7 days. 8. Avoid activities such as golfing, swimming, weed whacking, lifting more than 10 pounds weight, bowling, gymnastics and weight training/lifting. (6 weeks restriction) 9. Activities such as wood chopping with an axe, pull-ups in the gymnasium, power lifting, arc-welding, being close to home induction cooktops will always be a problem. 10. Arm sling is only a reminder not to raise the arm above the head. You do not need to keep the arm completely immobilized. Your free to move the arm and use it and for normal activities. In case of any problems, please call [facility], [facility], @ [phone], Attention: Device Clinic Device clinic follow-up in 5 days Follow-up with Dr. Ponce in 2-3 months FOLLOW UP DIRECTED, SOONER IF WORSENING SYMPTOMS, PROBLEMS OR CONCERNS Discharge Disposition: HOME SELF-CARE
== END 2024-08-23 13:11 | disposition home or self-care (01) ==
LOC: CATHEP 09:22 → 6NMEDSUR 14:38 → CATHEP 08-22 14:18
PROVIDERS: ADMIT Internal Medicine Clinical Cardiac Electrophysiology; ATTEND Internal Medicine Clinical Cardiac Electrophysiology
DX: I50.9 Heart failure, unspecified
CPT/HCPCS: 33225; 33249; 71045; 71046; 80053; 84443; 85025

== ENCOUNTER 2024-11-29 09:40 | Day surgery (SDC) | payer MEDICARE ==
[2024-11-26 12:32] VITALS: BMI 21.9
[~2024-11-29 09:40] MED LIST changes: -ALPRAZolam 0.25 MG TAB PO PRN; -ALPRAZolam 0.5 MG TAB PO PRN; -HEPARIN SODIUM 1,000 UN/ML (10ML VL) ONE; -HEPARIN SODIUM,PORCINE (1 ML) 2,500 UNIT in SODIUM CHLORIDE 0.9% 250 ML IRRIGATION PRN; -HEPARIN SODIUM,PORCINE 10,000 UNIT in SODIUM CHLORIDE 0.9% 1,000 ML IRRIGATION PRN; +LACTATED RINGERS 1,000 ML IV SCH; +LIDOCAINE 1% (10MG/ML) FOR IV START INTRADERMA PRN; -LIDOCAINE 1% INJ 10MG/ML (20 ML MDV) ONE; -NITROGLYCERIN SL TABS 0.4 MG TAB SUBLINGUAL PRN; -VERAPAMIL 2.5 MG/ML 2 ML AMP ONE; -fentaNYL (PF) 50 MCG/ML 2 ML AMP ONE
[2024-11-29] MEDS: SODIUM CHLORIDE 0.9% 1,000 ML IV SCH (09:48)
[2024-11-29] MEDS: IV FLUID CONTINUATION 1,000 ML IV ONE (09:51)
[2024-11-29 09:57] VITALS: RESP 16; TEMP 97.6
[2024-11-29] MEDS ORDERED: PROPOFOL 10 MG/ML 20 ML VIAL IV ONE (11:32)
--- NOTE | 2024-11-29 11:48 | P.HPCAR ---
History of Present Illness This is Dr. Ponce dictating an H/P on this patient The patient was interviewed and examined IMPRESSION / ASSESSMENT: Severe nonischemic cardiomyopathy with left bundle branch block Recent biventricular ICD implantation few months back Improvement in heart failure symptoms On guideline directed medical treatment PLAN: Defibrillation level testing after greater than 2 months of biventricular pacing HPI Patient feels better after BiV ICD implantation and feels less short of breath ROS: No fever chills or rigors, no cough, phlegm or expectoration, no nausea, vomiting or diarrhea, no hematuria, dysuria, no musculoskeletal complaints, no strokes or seizures, no skin lesions. EXAMINATION: 125/68 mmHg pulse rate in the 60s Heart sounds S1-S2 are normal Breath sounds are clear REVIEW OF LABS, ECG & MEDICAL DATA Atorvastatin aspirin spironolactone Entresto metoprolol Lasix digoxin Physical Exam Vitals: Vital Signs Temp Pulse Resp BP Pulse Ox 11/29/24 09:56 97.6 F 66 16 125/68 99 Intake and Output 11/28/24 11/29/24 11/29/24 22:59 06:59 14:59 Intake Total 150 Balance 150 Intake: IV 150 Other: Weight 61.2 kg Past Medical History Past Medical History: Heart Failure, Osteoarthritis (OA) Additional Past Medical History / Comment(s): leaky heart valve, see Dr Ponce H & P, "Mild heart attack 30 years ago." History of Any Multi-Drug Resistant Organisms: None Reported Past Surgical History: Heart Catheterization Additional Past Surgical History / Comment(s): COLONOSCOPY Past Anesthesia/Blood Transfusion Reactions: No Reported Reaction Additional Past Anesthesia/Blood Transfusion Reaction / Comment(s): No hx of blood transfusion to date. Type of Cardiac Device: AICD Device Placement Date:: 08/2024 Smoking Status: Never smoker - Past Family History Mother Family Medical History: Cancer, GI Bleed Additional Family Medical History / Comment(s): breast cancer Father Family Medical History: Cancer Additional Family Medical History / Comment(s): lung cancer Physical Examination Vital Signs Temp Pulse Resp BP Pulse Ox 11/29/24 09:56 97.6 F 66 16 125/68 99 Intake and Output 11/28/24 11/29/24 11/29/24 22:59 06:59 14:59 Intake Total 150 Balance 150 Intake: IV 150 Other: Weight 61.2 kg Results Current Medications Generic Name Dose Route Start Last Admin Trade Name Monicoq PRN Reason Stop Dose Admin Sodium Chloride 1,000 mls @ 50 mls/hr 11/29/24 06:31 11/29/24 09:48 Saline 0.9% IV 12/29/24 06:30 50 mls/hr .Q20H STACEY Administration Lactated Ringer's 1,000 mls @ 20 mls/hr 11/29/24 06:31 Lactated Ringers IV 12/29/24 06:30 .Q24H STACEY Lidocaine HCl 0.1 ml 11/29/24 06:31 Lidocaine 1% (10mg/Ml) For Iv Start INTRADERMA 12/29/24 06:30 PER PROTOCOL PRN IV Start Intake and Output 11/28/24 11/29/24 11/29/24 22:59 06:59 14:59 Intake Total 150 Balance 150 Intake: IV 150 Other: Weight 61.2 kg Patient Weight 11/30/24 06:59 Weight 61.2 kg
--- NOTE | 2024-11-29 11:52 | P.EPPROC ---
- EP Procedure Note Electrophysiology Procedure Note: Diagnosis Severe congestive heart failure secondary to nonischemic cardiomyopathy with underlying left bundle branch block Status post biventricular ICD implantation Patient brought in for defibrillation level testing The Medtronic biventricular ICD, cobalt XT heart failure was interrogated Atrial pacing impedance 418 ohms, pacing threshold 0.4 V at 0.4 ms, P waves 2.4 mV RV pacing impedance 437 ohms, pacing threshold 0. 7 V at 0.4 ms, R waves 9.1 mV LV pacing impedance 646 ohms, pacing threshold LV3-LV4 is 1 V at 0.4 ms High-voltage impedance 63 ohms Defibrillation level testing performed VF induced Successfully detected without any dropouts 10 J shock failed to defibrillate the patient 20 J shock successfully defibrillated the patient Total charge time 4 seconds Shock impedance 62 ohms Device was then reprogrammed with first cardioversion at 20 J and first defibrillation at max output Appropriate antitachycardia pacing and biventricular pacing parameters and VT detections
[2024-11-29 12:42] VITALS: BP 102/50; PULSE 60
== END 2024-11-29 12:42 | disposition home or self-care (01) ==
LOC: CATHEP 09:40
PROVIDERS: ATTEND Internal Medicine Clinical Cardiac Electrophysiology
DX: Z45.02 Encounter for adjustment and management of automatic implantable cardiac defibrillator (principal); I42.8 Other cardiomyopathies; I44.7 Left bundle-branch block, unspecified; I50.9 Heart failure, unspecified; M19.90 Unspecified osteoarthritis, unspecified site; I25.2 Old myocardial infarction; Z79.899 Other long term (current) drug therapy
CPT/HCPCS: 93642